=== PATIENT | female | born 1970 | race Caucasian/White ===

== ENCOUNTER → 2023-02-16 | Outpatient (CLI) | payer OTHER ==
[2023-02-16 16:11] LABS: Basophils # (A) 0.05 X 10*3/uL (0.00-0.10); Basophils % (A) 0.5 %; Eosinophils # (A) 0.34 X 10*3/uL (0.04-0.35); Eosinophils % (A) 3.3 %; HCT 40.9 % (37.2-46.3); HGB 12.8 g/dL (12.0-15.0); Immature Grans, Automated 0.3 %; Lymphocytes # (A) 2.82 X 10*3/uL (0.90-5.00); Lymphocytes % (A) 27.5 %; MCH 29.3 pg (27.0-32.0); MCHC 31.3 g/dL (32.0-37.0); MCV 93.6 fL (80.0-97.0); Mean Platelet Volume 11.9 fL (9.5-12.2); Monocytes # (A) 0.75 X 10*3/uL (0.20-1.00); Monocytes % (A) 7.3 %; NRBC Per 100 WBC 0 /100 WBCS (0.0-0.0); Neutrophils # (A) 6.27 X 10*3/uL (1.80-7.70); Neutrophils % (A) 61.1 %; Platelet Count 314 X 10*3/uL (140-440); RBC 4.37 X 10*6/uL (4.10-5.20); RDW 13.4 % (11.5-14.5); WBC 10.26 X 10*3/uL (4.50-10.00)
[2023-02-16 16:19] LABS: African American GFR (CKD) 123.2 (60.0-200.0); Anion Gap 8.8 mmol/L (10.00-18.00); BUN/Creat Ratio 30.67 Ratio (12.00-20.00); Blood Urea Nitrogen 18.4 mg/dL (9.0-27.0); Calcium 9.3 mg/dL (8.7-10.3); Carbon Dioxide 24.2 mmol/L (20.0-27.5); Non-African American GFR(CKD) 106.3 (60.0-200.0); Potassium 4.8 mmol/L (3.5-5.5)
== END | disposition home or self-care (01) ==
LOC: LABPAT 08:47
PROVIDERS: ATTEND Obstetrics & Gynecology
DX: Z01.812 Encounter for preprocedural laboratory examination (principal)
CPT/HCPCS: 80048; 85025; 93005

== ENCOUNTER 2023-02-23 05:35 | Day surgery (SDC) | payer OTHER ==
[2023-02-18 13:37] VITALS: BMI 35.2
[2023-02-23] MEDS ORDERED: DEXAMETHASONE SOD PHOSPHATE 4 MG/ML 1 ML VIAL IV ONE (05:53)
[2023-02-23] MEDS ORDERED: fentaNYL (PF) 50 MCG/ML 2 ML AMP IV PRN (05:53)
[2023-02-23] MEDS ORDERED: ONDANSETRON 4 MG/2 ML VIAL IVP ONE (05:53)
[2023-02-23] MEDS ORDERED: LIDOCAINE 1% (10MG/ML) FOR IV START INTRADERMA PRN (05:53)
[2023-02-23] MEDS: LACTATED RINGERS 1,000 ML IV SCH ×3 (06:32→17:43)
[2023-02-23 06:52] LABS: Glucose,Whole Blood 116 mg/dL (70-110)
[2023-02-23] MEDS ORDERED: SCOPOLAMINE 1 MG/72 HR PATCH TRANSDERM ONE (07:00)
--- NOTE | 2023-02-23 07:09 | P.HPOB ---
History of Present Illness H&P Date: 02/23/23 Chief Complaint: endometriosis 52 year old for TLH BSO using da nikolai and diagnostic cystoscopy. Review of Systems All systems: negative Constitutional: Denies chills, Denies fever Eyes: denies blurred vision, denies pain Ears, nose, mouth and throat: Denies headache, Denies sore throat Cardiovascular: Denies chest pain, Denies shortness of breath Respiratory: Denies cough Gastrointestinal: Denies abdominal pain, Denies diarrhea, Denies nausea, Denies vomiting Genitourinary: Denies dysuria, Denies hematuria Musculoskeletal: Denies myalgias Integumentary: Denies pruritus, Denies rash Neurological: Denies numbness, Denies weakness Psychiatric: Denies anxiety, Denies depression Endocrine: Denies fatigue, Denies weight change Past Medical History Past Medical History: Diabetes Mellitus Additional Past Medical History / Comment(s): Seasonal allergies, pre- diabetic History of Any Multi-Drug Resistant Organisms: None Reported Past Surgical History: Section Additional Past Surgical History / Comment(s): heel spurs Past Anesthesia/Blood Transfusion Reactions: No Reported Reaction Smoking Status: Never smoker - Past Family History Mother Family Medical History: Deep Vein Thrombosis (DVT) Medications and Allergies Home Medications Medication Instructions Recorded Confirmed Type Ascorbic Acid [Vitamin C] 500 mg PO DAILY 02/18/23 02/18/23 History Cholecalciferol [Vitamin D3 (10 10 mcg PO DAILY 02/18/23 02/18/23 History Mcg = 400 Iu)] Levocetirizine Dihydrochloride 5 mg PO HS 02/18/23 02/23/23 History [Xyzal] Multivitamins, Thera [Multivitamin 1 tab PO DAILY 02/18/23 02/18/23 History (formulary)] [place]-3/Dha/Epa/Fish Oil [Fish Oil 1 each PO DAILY 02/18/23 02/18/23 History 500 mg Softgel] Pseudoephedrine HCl [Sudafed] 120 mg PO HS 02/18/23 02/23/23 History Acetaminophen Tab [Tylenol Tab] 500 mg PO BID PRN 02/23/23 02/23/23 History Allergies Allergy/AdvReac Type Severity Reaction Status Date / Time aspirin [From Percodan] Allergy Rash/Hives Verified 02/23/23 06:36 codeine Allergy Rash/Hives Verified 02/23/23 06:36 oxycodone [From Percodan] Allergy Rash/Hives Verified 02/23/23 06:36 Sulfa (Sulfonamide Allergy Rash/Hives Verified 02/23/23 06:36 Antibiotics) sulfamethoxazole Allergy Rash/Hives Verified 02/23/23 06:36 [From Bactrim] trimethoprim [From Bactrim] Allergy Rash/Hives Verified 02/23/23 06:36 Exam Osteopathic Statement: *. No significant issues noted on an osteopathic structural exam other than those noted in the History and Physical/Consult. Vital Signs Temp Pulse Resp BP Pulse Ox 02/23/23 06:29 97.6 F 92 16 140/79 84 L Intake and Output 02/22/23 02/23/23 02/23/23 22:59 06:59 14:59 Other: Weight 91.63 kg HEArt: RRR Lungs:CTAB Abdomen: soft, nontender Extremeties: neg kassandra's Results Abnormal Lab Results - Last 24 Hours (Table) 02/23/23 Range/Units 06:50 POC Glucose (mg/dL) 116 H (70-110) mg/dL Assessment and Plan (1) Endometriosis Current Visit: Yes Status: Acute Code(s): N80.9 - ENDOMETRIOSIS, UNSPECIFIED SNOMED Code(s): 598785911 Plan: 1. [facility] BSO using da nikolai and diagnostic cystoscopy
[2023-02-23] MEDS ORDERED: MIDAZOLAM 2 MG/2 ML VIAL IVP ONE (07:25)
[2023-02-23] MEDS ORDERED: LIDOCAINE 2% INJ 20 MG/ML (2 ML VIAL) ONE (07:34)
[2023-02-23] MEDS ORDERED: KETOROLAC 15 MG/ML 1 ML VIAL ONE (07:34)
[2023-02-23] MEDS ORDERED: GLYCOPYRROLATE 0.2 MG/ML 2 ML VIAL ONE (07:34)
[2023-02-23] MEDS ORDERED: PROPOFOL 10 MG/ML 20 ML VIAL IV ONE (07:34)
[2023-02-23] MEDS ORDERED: SUCCINYLCHOLINE CHLORIDE 200 MG/10 ML VIAL IV ONE (07:34)
[2023-02-23] MEDS ORDERED: fentaNYL (PF) 50 MCG/ML 2 ML AMP ONE (07:34)
[2023-02-23] MEDS ORDERED: ROCURONIUM 10 MG/ML (5 ML VIAL) IV ONE (07:34)
[2023-02-23] MEDS ORDERED: NEOSTIGMINE 1 MG/ML 10 ML VIAL ONE (07:34)
[2023-02-23] MEDS ORDERED: BUPIVACAINE (PF) 0.25% 30 ML VIAL SQ ONE (08:04)
[2023-02-23] MEDS ORDERED: diphenhydrAMINE 50 MG/ML 1 ML VIAL IVP PRN ×2 (09:16)
[2023-02-23] MEDS ORDERED: HYDROmorphone 2 MG TAB PO PRN (09:16)
[2023-02-23] MEDS ORDERED: diphenhydrAMINE 25 MG CAP PO PRN (09:16)
[2023-02-23] MEDS ORDERED: NALOXONE 0.4 MG/ML 1 ML VIAL IV PRN (09:16)
[2023-02-23] MEDS ORDERED: METOCLOPRAMIDE 5 MG/ML 2 ML VIAL IVP PRN (09:16)
[2023-02-23] MEDS ORDERED: SIMETHICONE 80 MG CHEWABLE PO PRN (09:16)
[2023-02-23] MEDS ORDERED: ONDANSETRON 4 MG/2 ML VIAL IVP PRN (09:16)
[2023-02-23] MEDS ORDERED: ZOLPIDEM 5 MG TAB PO PRN (09:16)
[2023-02-23] MEDS ORDERED: diphenhydrAMINE 50 MG CAP PO PRN (09:16)
--- NOTE | 2023-02-23 09:20 | P.OP ---
Date of Procedure: 02/23/23 Preoperative Diagnosis: 1. endometriosis 2. fibroid uterus Postoperative Diagnosis: same Procedure(s) Performed: Laparoscopic hysterectomy bilateral salpingo-oophorectomy using da Scar and diagnostic cystoscopy Anesthesia: MIROSLAVA Surgeon: Megan Tovar Hairspring I Inspector #1: Daisy Momin Estimated Blood Loss (ml): 100 IV fluids (ml): 600 Urine output (ml): 150 Pathology: other (Uterus, cervix, bilateral fallopian tubes and ovaries) Condition: stable Disposition: PACU Description of Procedure: Patient taken the operating room where general anesthesia was obtained without difficulty. She is prepped and draped in normal sterile fashion dorsal lithotomy position, legs placed in the Kojo stirrups. Weighted speculum placed in the vagina and the anterior lip the cervix was grasped with single-tooth tenaculum. The uterus sounded to 9 cm and the cervix diameter was 3.5 cm. The appropriate manipulator tip and ring were placed on the Enedelia manipulator. The Enedelia manipulator was then placed in the uterus. Posey catheter was also placed. Attention was then turned to the abdomen and gloves were changed. A 5 mm supraumbilical incision was made the scalpel and a 5 mm optical trocar was placed under direct visualization. 10 cm to the right of this and 2 cm down a 5 mm incision was made and 8 mm da Scar port was placed under direct visualization. Same measurements on the opposite side of the patient's abdomen, the 5 mm incision was made and 8 mm da Scar port was placed under direct visualization. In the left upper quadrant a 10 mm incision was made and a 10 mm optical trocar was placed under direct visualization. The 5 mm optical trocar was then replaced with the 8 mm da Scar camera port. The robot was docked on patient's right side. The camera was introduced and then the monopolar curved scissor and [place] bipolar placed under direct visualization. I broke scrub and went to the physician console. The left infundibulopelvic ligament was cauterized with the [place] bipolar and cut with monopolar curved scissors. The left round ligament was cauterized with the [place] bipolar and cut with monopolar curved scissors. The posterior leaf of the broad ligament was taken down using the monopolar curved scissors. Anterior leaf of the broad ligament was then taken down using the monopolar curved scissors. The uterine artery was cauterized with the [place] bipolar and cut with monopolar curved scissors. The bladder flap was then started using the monopolar curved scissors. Attention was then turned to the right side of the patient's anatomy and the right infundibular pelvic ligament was cauterized with the [place] bipolar and cut with monopolar curved scissors. The right round ligament was cauterized with the [place] bipolar and cut with monopolar curved scissors. Posterior leaf of the broad ligament was taken down using the monopolar curved scissors and the anterior leaf was taken down using the monopolar curved scissors. The uterine artery was cauterized the [place] bipolar cut with monopolar curved scissors. The bladder flap was then finished on this side. Anterior colpotomy was made using the monopolar curved scissors. The rest of the uterus was from the vaginal cuff by following the ring around with the monopolar curved scissors through the uterosacral ligaments back to the anterior portion. Once the uterus and cervix were amputated they were pulled through the vaginal cuff. Hemostasis was assured. The instruments were changed for the Cardier forcep and the darcy suture cut. The vaginal cuff was then closed using O str atafix barbed suture in a running fashion. Hemostasis was again assured and the pelvis was irrigated. All instruments were removed from the abdomen and the robot was undocked. I scrubbed back in to perform a cystoscopy. There were jets from both ureteral orifices. The abdominal incisions were closed with 4-0 Vicryl in a subcuticular fashion. Patient tolerated the procedure well, sponge and instrument counts correct 2 and she was taken to recovery room in stable condition condition
[2023-02-23] MEDS ORDERED: HYDROmorphone 0.5 MG/0.5 ML SYRINGE IVP ONE ×3 (09:41→10:17)
[2023-02-23] MEDS ORDERED: ACETAMINOPHEN IV (For NPO) 1,000 MG/100 ML VIAL IVPB ONE (09:46)
[2023-02-23] MEDS ORDERED: LACTATED RINGERS 1,000 ML IV ONE ×2 (10:02)
[2023-02-23] MEDS: ACETAMINOPHEN TAB 500 MG TAB PO SCH ×2 (17:12→22:32)
[2023-02-23] MEDS: KETOROLAC 15 MG/ML 1 ML VIAL IVP SCH (18:32)
[2023-02-23] MEDS: SENNOSIDES-DOCUSATE SODIUM 1 EACH TAB PO SCH (22:33)
[2023-02-23] MEDS: IBUPROFEN 600 MG TAB PO SCH (22:33)
[2023-02-24] MEDS: IBUPROFEN 600 MG TAB PO SCH (01:32)
[2023-02-24] MEDS: ACETAMINOPHEN TAB 500 MG TAB PO SCH (04:35)
[2023-02-24] MEDS: KETOROLAC 15 MG/ML 1 ML VIAL IVP SCH ×2 (04:36→04:37)
[2023-02-24] MEDS: LACTATED RINGERS 1,000 ML IV SCH ×2 (04:37→06:56)
--- NOTE | 2023-02-24 07:55 | P.DS ---
Providers Expected date of discharge: 02/24/23 Attending physician: Megan Tovar Primary care physician: Radah Claros - Discharge Diagnosis(es) (1) Endometriosis Current Visit: Yes Status: Resolved (2) History of robot-assisted laparoscopic hysterectomy Current Visit: Yes Status: Acute Hospital Course: Patient presented for a TLHBSO using da Scar and diagnostic cystoscopy. She underwent this procedure without complication. Her postoperative course was uneventful. She denies nausea, vomiting, chest pain, shortness of breath or calf pain. Patient will be discharged home post operative day #1 in stable condition to follow-up with me in 3 weeks. Plan - Discharge Summary Discharge Rx Participant: Yes New Discharge Prescriptions: New HYDROmorphone [Dilaudid] 4 mg PO Q4HR PRN #12 tab PRN Reason: Pain Scale 7 - 10 Ibuprofen [Motrin] 600 mg PO Q6H #30 tab No Action Levocetirizine Dihydrochloride [Xyzal] 5 mg PO HS Acetaminophen Tab [Tylenol Tab] 500 mg PO BID PRN PRN Reason: Pain Ascorbic Acid [Vitamin C] 500 mg PO DAILY Cholecalciferol [Vitamin D3 (10 Mcg = 400 Iu)] 10 mcg PO DAILY Pseudoephedrine HCl [Sudafed] 120 mg PO HS Multivitamins, Thera [Multivitamin (formulary)] 1 tab PO DAILY [place]-3/Dha/Epa/Fish Oil [Fish Oil 500 mg Softgel] 1 each PO DAILY Discharge Medication List Ascorbic Acid [Vitamin C] 500 mg PO DAILY 02/18/23 [History] Cholecalciferol [Vitamin D3 (10 Mcg = 400 Iu)] 10 mcg PO DAILY 02/18/23 [History] Levocetirizine Dihydrochloride [Xyzal] 5 mg PO HS 02/18/23 [History] Multivitamins, Thera [Multivitamin (formulary)] 1 tab PO DAILY 02/18/23 [History] [place]-3/Dha/Epa/Fish Oil [Fish Oil 500 mg Softgel] 1 each PO DAILY 02/18/23 [History] Pseudoephedrine HCl [Sudafed] 120 mg PO HS 02/18/23 [History] Acetaminophen Tab [Tylenol Tab] 500 mg PO BID PRN 02/23/23 [History] HYDROmorphone [Dilaudid] 4 mg PO Q4HR PRN #12 tab 04/11/23 [Rx] Ibuprofen [Motrin] 600 mg PO Q6H #30 tab 02/24/23 [Rx] Follow up Appointment(s)/Referral(s): Megan Tovar DO [Doctor of Osteopathic Medicine] - 3 Weeks Patient Instructions/Handouts: *Surgery [facility] - Scopalamine Patch Instructions Discharge Disposition: HOME SELF-CARE
[2023-02-24 08:06] LABS: Basophils % (A) 0 %; Eosinophils # (A) 0.1 k/uL (0-0.7); Eosinophils % (A) 1 %; HCT 36.2 % (34.0-46.0); HGB 11.8 gm/dL (11.4-16.0); Lymphocytes % (A) 30 %; MCH 30.1 pg (25.0-35.0); MCHC 32.7 g/dL (31.0-37.0); Mean Platelet Volume 9.1; Monocytes # (A) 0.4 k/uL (0-1.0); Monocytes % (A) 4 %; Neutrophils # (A) 6.2 k/uL (1.3-7.7); Neutrophils % (A) 62 %; Platelet Count 257 k/uL (150-450); RBC 3.94 m/uL (3.80-5.40); RDW 13.4 % (11.5-15.5)
[2023-02-24 08:09] VITALS: BP 125/69; PULSE 69; RESP 18; TEMP 98.4
[2023-02-24] MEDS: SENNOSIDES-DOCUSATE SODIUM 1 EACH TAB PO SCH (08:10)
== END 2023-02-24 09:45 | disposition home or self-care (01) ==
LOC: OR 05:35 → 4FBP 09:35 → OR 02-24 09:45
PROVIDERS: ATTEND Obstetrics & Gynecology
DX: D25.1 Intramural leiomyoma of uterus (principal); N84.1 Polyp of cervix uteri; N83.11 Corpus luteum cyst of right ovary; N83.202 Unspecified ovarian cyst, left side; N80.9 Endometriosis, unspecified; Z87.39 Personal history of other diseases of the musculoskeletal system and connective tissue; Z83.2 Family history of diseases of the blood and blood-forming organs and certain disorders involving the immune mechanism; Z79.899 Other long term (current) drug therapy; Z88.6 Allergy status to analgesic agent; Z88.5 Allergy status to narcotic agent; Z88.2 Allergy status to sulfonamides; Z88.1 Allergy status to other antibiotic agents
CPT/HCPCS: 58554; S2900; 81025; 85025; 86850; 86900; 86901; 88307

== ENCOUNTER 2024-08-12 16:51 | Emergency (ER) | payer OTHER ==
[2024-08-12 17:05] VITALS: TEMP 98
--- NOTE | 2024-08-12 17:41 | ED ---
Back Pain HPI - General Chief Complaint: Back Pain/Injury Stated Complaint: Right flank and back pain, vomiting Time Seen by Provider: 08/12/24 17:11 Source: patient, RN notes reviewed Limitations: no limitations - History of Present Illness Initial Comments: 53-year-old female presenting to the ER with chief complaint of right flank pain x 1 day. Patient states she has been having intermittent, mild right flank pain over the past 2 weeks. This morning, patient states right flank pain began to worsen and describes it as a throbbing pain with intermittent sharp pains locat ed in the right flank radiating to the back and into the front of the abdomen. She also reports an episode of vomiting this morning. States the pain is constant and she cannot find a comfortable position. Denies urinary symptoms, fever, chills, chest pain, shortness of breath. She does have a history of hysterectomy and , denies other abdominal surgeries. She states her PCP believes her pain is stress-induced as she has been under a lot of stress lately. - Related Data Home Medications Medication Instructions Recorded Confirmed Ascorbic Acid [Vitamin C] 500 mg PO DAILY 02/18/23 02/18/23 Cholecalciferol [Vitamin D3 (10 10 mcg PO DAILY 02/18/23 02/18/23 Mcg = 400 Iu)] Levocetirizine Dihydrochloride 5 mg PO HS 02/18/23 02/23/23 [Xyzal] Multivitamins, Thera [Multivitamin 1 tab PO DAILY 02/18/23 02/18/23 (formulary)] [place]-3/Dha/Epa/Fish Oil [Fish Oil 1 each PO DAILY 02/18/23 02/18/23 500 mg Softgel] Pseudoephedrine HCl [Sudafed] 120 mg PO HS 02/18/23 02/23/23 Acetaminophen Tab [Tylenol Tab] 500 mg PO BID PRN 02/23/23 02/23/23 Previous Rx's Medication Instructions Recorded HYDROmorphone [Dilaudid] 4 mg PO Q4HR PRN #12 tab 02/24/23 Ibuprofen [Motrin] 600 mg PO Q6H #30 tab 02/24/23 Ketorolac [Toradol] 10 mg PO Q8HR #15 tab 08/12/24 Allergies Allergy/AdvReac Type Severity Reaction Status Date / Time aspirin [From Percodan] Allergy Rash/Hives Verified 02/23/23 06:36 codeine Allergy Rash/Hives Verified 02/23/23 06:36 oxycodone [From Percodan] Allergy Rash/Hives Verified 02/23/23 06:36 Sulfa (Sulfonamide Allergy Rash/Hives Verified 02/23/23 06:36 Antibiotics) sulfamethoxazole Allergy Rash/Hives Verified 02/23/23 06:36 [From Bactrim] trimethoprim [From Bactrim] Allergy Rash/Hives Verified 02/23/23 06:36 Review of Systems ROS Statement: Those systems with pertinent positive or pertinent negative responses have been documented in the HPI. ROS Other: All systems not noted in ROS Statement are negative. Past Medical History Past Medical History: Diabetes Mellitus, Skin Disorder Additional Past Medical History / Comment(s): Seasonal allergies, pre- diabetic History of Any Multi-Drug Resistant Organisms: None Reported Past Surgical History: Section, Hysterectomy Additional Past Surgical History / Comment(s): heel spurs Past Anesthesia/Blood Transfusion Reactions: No Reported Reaction Past Psychological History: Anxiety Smoking Status: Never smoker - Past Family History Mother Family Medical History: Deep Vein Thrombosis (DVT) General Exam Limitations: no limitations General appearance: alert, in no apparent distress Head exam: Present: atraumatic, normocephalic, normal inspection Eye exam: Present: normal appearance, PERRL, EOMI. Absent: scleral icterus, conjunctival injection, periorbital swelling ENT exam: Present: normal exam, mucous membranes moist Respiratory exam: Present: normal lung sounds bilaterally. Absent: respiratory distress, wheezes, rales, rhonchi, stridor Cardiovascular Exam: Present: regular rate, normal rhythm, normal heart sounds. Absent: systolic murmur, diastolic murmur, rubs, gallop, clicks GI/Abdominal exam: Present: soft, normal bowel sounds. Absent: distended, tenderness, guarding, rebound, rigid Back exam: Absent: CVA tenderness (R), CVA tenderness (L) Neurological exam: Present: alert, oriented X3 Psychiatric exam: Present: normal affect, normal mood Skin exam: Present: warm, dry, intact, normal color. Absent: rash Course Vital Signs 08/12/24 08/12/24 17:02 20:33 Temperature 98 F Pulse Rate 76 81 Respiratory 16 18 Rate Blood Pressure 144/104 117/75 O2 Sat by Pulse 99 100 Oximetry Medical Decision Making - Medical Decision Making Was pt. sent in by a medical professional or institution (CLARISSA Deshpande, AIRCRAFT DESIGN ENGINEER, urgent care, hospital, or halfway...) When possible be specific @ -No Did you speak to anyone other than the patient for history (EMS, parent, family, police, friend...)? What history was obtained from this source @ -No Did you review nursing and triage notes (agree or disagree)? Why? @ -I reviewed and agree with nursing and triage notes Were old charts reviewed (outside hosp., previous admission, EMS record, old EKG, old radiological studies, urgent care reports/EKG's, halfway records)? Report findings @ -No old charts were reviewed Differential Diagnosis (chest pain, altered mental status, abdominal pain women, abdominal pain men, vaginal bleeding, weakness, fever, dyspnea, syncope, headache, dizziness, GI bleed, back pain, seizure, CVA, palpatations, mental health, musculoskeletal)? @ -Differential Abdominal Pain Women: Appendicitis, Cholecystitis, diverticulosis, ischemic bowel, pancreatitis, hepatitis, UTI, gastroenteritis, AAA, incarcerated hernia, bowel obstruction, constipation, inflammatory bowel, hepatitis, peptic ulcer disease, splenic infarction, perforated viscus, vulvitis, ovarian torsion, PID, kidney stone, placenta abruption, this is not meant to be an all-inclusive list EKG interpreted by me (3pts min.). @ -None X-rays interpreted by me (1pt min.). @ -None done CT interpreted by me (1pt min.). @ -None done U/S interpreted by me (1pt. min.). @ -Send gallbladder revealed hepatic steatosis and cholelithiasis, no acute process What testing was considered but not performed or refused? (CT, X-rays, U/S, labs)? Why? @ -CT considered however deferred due to pain improved upon reevaluation, no blood/bacteria in urine or hydronephrosis to indicate kidney stone or pyelonephrosis What meds were considered but not given or refused? Why? @ -None Did you discuss the management of the patient with other professionals (professionals i.e. CLARISSA Deshpande, AIRCRAFT DESIGN ENGINEER, lab, RT, psych nurse, social worker aide, senior mortgage loan processor, teacher, personnel officer, wrapper caser)? Give summary @ -No Was smoking cessation discussed for >3mins.? @ -No Was critical care preformed (if so, how long)? @ -No Were there social determinants of health that impacted care today? How? (Homelessness, low income, unemployed, alcoholism, drug addiction, transp ortation, low edu. Level, literacy, decrease access to med. care, detention, rehab)? @ -No Was there de-escalation of care discussed even if they declined (Discuss DNR or withdrawal of care, Hospice)? DNR status @ -No What co-morbidities impacted this encounter? (DM, HTN, Smoking, COPD, CAD, Cancer, CVA, ARF, Chemo, Hep., AIDS, mental health diagnosis, sleep apnea, morbid obesity)? @ -None Was patient admitted / discharged? Hospital course, mention meds given and route, prescriptions, significant lab abnormalities, going to OR and other pertinent info. @ -Discharge. This is a 53-year-old female presenting to the ER with chief complaint of right flank pain x 1 day. No red flag symptoms. Vital signs within acceptable limits. Abdomen is soft and nontender. Patient is provided with IV fluids, analgesics, and antiemetics. Lab work including CBC, CMP, lactic acid, lipase remarkable for white blood cell count of 12.5, otherwise unremarkable. Urinalysis largely unremarkable for significant amount of blood or bacteria. Ultrasound gallbladder reveals cholelithiasis and hepatic steatosis. Upon reevaluation, patient states symptoms improved. Due to no abdominal tenderness, no hydronephrosis or blood in urine, kidney stone unlikely. Discussed with patient I do not suspect emergent etiology causing symptoms at this time. Strict return precautions discussed and patient is agreeable to plan. Patient discharged with analgesics. Case was discussed with my ED attending Dr. Avila. Undiagnosed new problem with uncertain prognosis? @ -No Drug Therapy requiring intensive monitoring for toxicity (Heparin, Nitro, Insulin, Cardizem)? @ -No Were any procedures done? @ -No Diagnosis/symptom? @ -Right flank pain Acute, or Chronic, or Acute on Chronic? @ -Acute Uncomplicated (without systemic symptoms) or Complicated (systemic symptoms)? @ -Uncomplicated Side effects of treatment? @ -No Exacerbation, Progression, or Severe Exacerbation? @ -No Poses a threat to life or bodily function? How? (Chest pain, [place], CA, pneumonia, PE, COPD, DKA, ARF, appy, cholecystitis, CVA, Diverticulitis, Homicidal, Suicidal, threat to staff... and all critical care pts) @ -Not at this time - Lab Data Result diagrams: 08/12/24 18:16 08/12/24 18:16 Lab Results 08/12/24 08/12/24 08/12/24 Range/Units 18:16 18:16 18:16 WBC 12.5 H (3.8-10.6) k/uL RBC 4.97 (3.80-5.40) m/uL Hgb 15.6 (11.4-16.0) gm/dL Hct 47.4 H (34.0-46.0) % MCV 95.5 (80.0-100.0) fL MCH 31.5 (25.0-35.0) pg MCHC 32.9 (31.0-37.0) g/dL RDW 13.0 (11.5-15.5) % Plt Count 276 (150-450) k/uL MPV 9.3 Neutrophils % 84 % Lymphocytes % 11 % Monocytes % 3 % Eosinophils % 1 % Basophils % 0 % Neutrophils # 10.5 H (1.3-7.7) k/uL Lymphocytes # 1.4 (1.0-4.8) k/uL Monocytes # 0.3 (0-1.0) k/uL Eosinophils # 0.1 (0-0.7) k/uL Basophils # 0.0 (0-0.2) k/uL Sodium 140 (137-145) mmol/L Potassium 4.7 (3.5-5.1) mmol/L Chloride 105 (98-107) mmol/L Carbon Dioxide 27 (22-30) mmol/L Anion Gap 8 mmol/L BUN 19 H (7-17) mg/dL Creatinine 0.57 (0.52-1.04) mg/dL Est GFR (CKD-EPI)AfAm >90 (>60 ml/min/1.73 sqM) Est GFR (CKD-EPI)NonAf >90 (>60 ml/min/1.73 sqM) Glucose 129 H (74-99) mg/dL Plasma Lactic Acid Richard 1.0 (0.7-2.0) mmol/L Calcium 9.7 (8.4-10.2) mg/dL Total Bilirubin 0.6 (0.2-1.3) mg/dL AST 26 (14-36) U/L ALT 36 H (4-34) U/L Alkaline Phosphatase 98 (38-126) U/L Total Protein 8.2 (6.3-8.2) g/dL Albumin 4.9 (3.5-5.0) g/dL Lipase 75 (23-300) U/L Urine Color Urine Appearance (Clear) Urine pH (5.0-8.0) Ur Specific [place] (1.001-1.035) Urine Protein (Negative) Urine Glucose (UA) (Negative) Urine Ketones (Negative) Urine Blood (Negative) Urine Nitrite (Negative) Urine Bilirubin (Negative) Urine Urobilinogen (<2.0) mg/dL Ur Leukocyte Esterase (Negative) Urine RBC (0-5) /hpf Urine WBC (0-5) /hpf Ur Squamous Epith Cells (0-4) /hpf Urine Mucus (None) /hpf 08/12/24 Range/Units 19:32 WBC (3.8-10.6) k/uL RBC (3.80-5.40) m/uL Hgb (11.4-16.0) gm/dL Hct (34.0-46.0) % MCV (80.0-100.0) fL MCH (25.0-35.0) pg MCHC (31.0-37.0) g/dL RDW (11.5-15.5) % Plt Count (150-450) k/uL MPV Neutrophils % % Lymphocytes % % Monocytes % % Eosinophils % % Basophils % % Neutrophils # (1.3-7.7) k/uL Lymphocytes # (1.0-4.8) k/uL Monocytes # (0-1.0) k/uL Eosinophils # (0-0.7) k/uL Basophils # (0-0.2) k/uL Sodium (137-145) mmol/L Potassium (3.5-5.1) mmol/L Chloride (98-107) mmol/L Carbon Dioxide (22-30) mmol/L Anion Gap mmol/L BUN (7-17) mg/dL Creatinine (0.52-1.04) mg/dL Est GFR (CKD-EPI)AfAm (>60 ml/min/1.73 sqM) Est GFR (CKD-EPI)NonAf (>60 ml/min/1.73 sqM) Glucose (74-99) mg/dL Plasma Lactic Acid Richard (0.7-2.0) mmol/L Calcium (8.4-10.2) mg/dL Total Bilirubin (0.2-1.3) mg/dL AST (14-36) U/L ALT (4-34) U/L Alkaline Phosphatase (38-126) U/L Total Protein (6.3-8.2) g/dL Albumin (3.5-5.0) g/dL Lipase (23-300) U/L Urine Color Colorless Urine Appearance Clear (Clear) Urine pH 7.0 (5.0-8.0) Ur Specific [place] 1.021 (1.001-1.035) Urine Protein Negative (Negative) Urine Glucose (UA) Negative (Negative) Urine Ketones Negative (Negative) Urine Blood Negative (Negative) Urine Nitrite Negative (Negative) Urine Bilirubin Negative (Negative) Urine Urobilinogen <2.0 (<2.0) mg/dL Ur Leukocyte Esterase Moderate H (Negative) Urine RBC 1 (0-5) /hpf Urine WBC 8 H (0-5) /hpf Ur Squamous Epith Cells 5 H (0-4) /hpf Urine Mucus Rare H (None) /hpf Disposition Clinical Impression: Right flank pain Disposition: HOME SELF-CARE Condition: Stable Instructions (If sedation given, give patient instructions): Flank Pain (ED) Additional Instructions: Please return to the Emergency Department if symptoms worsen or any other concerns. Prescriptions: Ketorolac [Toradol] 10 mg PO Q8HR #15 tab Is patient prescribed a controlled substance at d/c from ED?: No Referrals: Radha Claros MD [Primary Care Provider] - 1-2 days Time of Disposition: 20:26
[2024-08-12] MEDS: SODIUM CHLORIDE 0.9% 1,000 ML IV STA (18:21)
[2024-08-12] MEDS: KETOROLAC 15 MG/ML 1 ML VIAL IVP STA ×2 (18:22→20:37)
[2024-08-12 18:24] LABS: Basophils % (A) 0 %; Eosinophils # (A) 0.1 k/uL (0-0.7); Eosinophils % (A) 1 %; HCT 47.4 % (34.0-46.0); HGB 15.6 gm/dL (11.4-16.0); Lymphocytes # (A) 1.4 k/uL (1.0-4.8); Lymphocytes % (A) 11 %; MCH 31.5 pg (25.0-35.0); MCHC 32.9 g/dL (31.0-37.0); MCV 95.5 fL (80.0-100.0); Mean Platelet Volume 9.3; Monocytes # (A) 0.3 k/uL (0-1.0); Monocytes % (A) 3 %; Neutrophils # (A) 10.5 k/uL (1.3-7.7); Neutrophils % (A) 84 %; Platelet Count 276 k/uL (150-450); RBC 4.97 m/uL (3.80-5.40); WBC 12.5 k/uL (3.8-10.6)
[2024-08-12] MEDS: ONDANSETRON 4 MG/2 ML VIAL IVP STA (18:24)
[2024-08-12 18:35] LABS: ALT 36 U/L (4-34); AST 26 U/L (14-36); African American GFR (CKD) >90 (>60 ml/min/1.73 sqM); Albumin 4.9 g/dL (3.5-5.0); Alkaline Phosphatase 98 U/L (38-126); Anion Gap 8 mmol/L; Blood Urea Nitrogen 19 mg/dL (7-17); Calcium 9.7 mg/dL (8.4-10.2); Carbon Dioxide 27 mmol/L (22-30); Chloride 105 mmol/L (98-107); Glucose 129 mg/dL (74-99); Lipase 75 U/L (23-300); Non-African American GFR(CKD) >90 (>60 ml/min/1.73 sqM); Potassium 4.7 mmol/L (3.5-5.1); Sodium 140 mmol/L (137-145); Total Bilirubin 0.6 mg/dL (0.2-1.3); Total Protein 8.2 g/dL (6.3-8.2)
--- NOTE | 2024-08-12 19:24 | US ---
EXAMINATION TYPE: US gallbladder DATE OF EXAM: 08/12/2024 COMPARISON: NONE CLINICAL INDICATION: Female, 53 years old with history of RUQ abdominal pain; Right side ABD pain TECHNIQUE: Multiple sonographic images of the right upper quadrant are obtained. FINDINGS: EXAM MEASUREMENTS: Liver Length: 17.9 cm Gallbladder Wall: 0.3 cm CBD: 0.5 cm Right Kidney: 10.2 x 4.4 x 4.9 cm PRISON KEEPER NOTES: Pancreas: wnl, tail obscured by overlying bowel gas Liver: Enlarged, difficult to penetrate, heterogeneous Gallbladder: Multiple gallstones near neck Evidence for sonographic Warner's sign: No CBD: wnl Right Kidney: No evidence of hydro IMPRESSION: 1. Hepatic steatosis. 2. Cholelithiasis. [facility], , 08/12/2024 7:22 PM
[2024-08-12 20:06] LABS: Appearance,Urine Clear (Clear); Bilirubin,Urine Negative (Negative); Blood,Urine Negative (Negative); Color,Urine Colorless; Glucose,Urine (UA) Negative (Negative); Ketones,Urine Negative (Negative); Leukocyte Esterase,Urine Moderate (Negative); Mucus,Urine Rare /hpf; Nitrite,Urine Negative (Negative); Protein,Urine Negative (Negative); RBC,Urine 1 /hpf (0-5); Specific Gravity,Urine 1.021 (1.001-1.035); Squamous Epithelial Cell,Urine 5 /hpf (0-4); Urobilinogen,Urine <2.0 mg/dL (<2.0); WBC,Urine 8 /hpf (0-5)
[2024-08-12 20:37] VITALS: BP 117/75; PULSE 81; RESP 18
== END 2024-08-12 20:41 | disposition home or self-care (01) ==
LOC: EC 16:51
DX: K80.20 Calculus of gallbladder without cholecystitis without obstruction (principal); K76.0 Fatty (change of) liver, not elsewhere classified; Z88.2 Allergy status to sulfonamides; Z88.1 Allergy status to other antibiotic agents; Z88.5 Allergy status to narcotic agent; Z88.6 Allergy status to analgesic agent; Z90.710 Acquired absence of both cervix and uterus
CPT/HCPCS: 36415; 76705; 80053; 81001; 83605; 83690; 85025; 96361; 96374; 96375; 96376; 99284

== ENCOUNTER 2024-08-14 20:57 | Emergency (ER) | payer OTHER ==
[2024-08-14 21:00] VITALS: RESP 16
--- NOTE | 2024-08-14 21:38 | ED ---
Abdominal Pain HPI - General Chief Complaint: Abdominal Pain Stated Complaint: Back Pain Source: patient Mode of arrival: ambulatory Limitations: no limitations - History of Present Illness Initial Comments: Patient is a 53-year-old woman Who presents to have evaluation of right flank/abdomen pain. Patient states pain started 3 to 4 days ago and has been constant since that time. It was a little worse tonight before she had eaten dinner. She was seen here 2 days ago, had lab studies and an ultrasound of the right upper quadrant that did not reveal exact etiology. The patient states that she has been taking ketorolac which does not really do much for the symp toms. The patient has not had associated symptoms, no fever or chills. No change in urination or bowel movements. MD Complaint: flank pain Onset/Timin -: days(s) Location: R flank Radiation: none Migration to: no migration Severity: moderate Quality: aching Consistency: constant Improves With: nothing Worsens With: nothing Associated Symptoms: denies other symptoms - Related Data Home Medications Medication Instructions Recorded Confirmed Cholecalciferol [Vitamin D3 (10 10 mcg PO DAILY 02/18/23 08/17/24 Mcg = 400 Iu)] Levocetirizine Dihydrochloride 5 mg PO HS 02/18/23 08/17/24 [Xyzal] Multivitamins, Thera [Multivitamin 1 tab PO DAILY 02/18/23 08/17/24 (formulary)] Previous Rx's Medication Instructions Recorded Famotidine [Pepcid] 20 mg PO BID #14 tablet 08/15/24 Acetaminophen Tab [Tylenol Tab] 650 mg PO Q4H PRN #30 tablet 08/18/24 Ibuprofen [Motrin] 600 mg PO Q8HR PRN #30 tab 08/18/24 Allergies Allergy/AdvReac Type Severity Reaction Status Date / Time acetaminophen [From [place]] Allergy Rash/Hives Verified 08/16/24 18:20 aspirin [From Percodan] Allergy Rash/Hives Verified 08/17/24 10:30 codeine Allergy Rash/Hives Verified 08/17/24 10:30 hydrocodone [From [place]] Allergy Rash/Hives Verified 08/16/24 18:20 oxycodone [From Percodan] Allergy Rash/Hives Verified 08/17/24 10:30 Sulfa (Sulfonamide Allergy Rash/Hives/ Verified 08/17/24 10:30 Antibiotics) SOB Review of Systems ROS Statement: Those systems with pertinent positive or pertinent negative responses have been documented in the HPI. ROS Other: All systems not noted in ROS Statement are negative. Constitutional: Denies: fever, chills Respiratory: Denies: cough, dyspnea Cardiovascular: Denies: chest pain, palpitations, edema Gastrointestinal: Reports: abdominal pain. Denies: nausea, vomiting, diarrhea, constipation Genitourinary: Denies: dysuria, hematuria Musculoskeletal: Denies: back pain Skin: Denies: rash Neurological: Denies: headache, weakness, numbness Past Medical History Past Medical History: Diabetes Mellitus, Skin Disorder Additional Past Medical History / Comment(s): Seasonal allergies, pre- diabetic History of Any Multi-Drug Resistant Organisms: None Reported Past Surgical History: Section, Hysterectomy Additional Past Surgical History / Comment(s): heel spurs Past Anesthesia/Blood Transfusion Reactions: No Reported Reaction Past Psychological History: Anxiety Smoking Status: Never smoker - Past Family History Mother Family Medical History: Deep Vein Thrombosis (DVT) General Exam Limitations: no limitations General appearance: alert, in no apparent distress Head exam: Present: atraumatic, normocephalic Eye exam: Present: normal appearance. Absent: scleral icterus, conjunctival injection Neck exam: Present: normal inspection Respiratory exam: Present: normal lung sounds bilaterally. Absent: respiratory distress, wheezes, rales, rhonchi, stridor, accessory muscle use Cardiovascular Exam: Present: regular rate, normal rhythm, normal heart sounds. Absent: systolic murmur, diastolic murmur, rubs, gallop GI/Abdominal exam: Present: soft. Absent: distended, tenderness, guarding, rebound, rigid, mass Extremities exam: Present: normal inspection, normal capillary refill. Absent: pedal edema, calf tenderness Back exam: Present: normal inspection. Absent: CVA tenderness (R), CVA tenderness (L) Neurological exam: Present: alert Skin exam: Present: warm, dry, intact, normal color. Absent: rash Course Vital Signs 08/14/24 08/14/24 08/15/24 20:58 22:40 01:00 Temperature 98.8 F 98.1 F Pulse Rate 71 68 86 Respiratory 16 16 16 Rate Blood Pressure 155/85 154/100 127/78 O2 Sat by Pulse 99 95 98 Oximetry Medical Decision Making - Medical Decision Making The patient had CT scan of the abdomen and pelvis that I interpreted as negative for free air, obstruction, or acute surgical condition. Was pt. sent in by a medical professional or institution (CLARISSA Deshpande, SPRAY PAINTING MACHINE OPERATOR, urgent care, hospital, or prison...) When possible be specific @ -[No] Did you speak to anyone other than the patient for history (EMS, parent, family, police, friend...)? What history was obtained from this source @ -[No] Did you review nursing and triage notes (agree or disagree)? Why? @ -[I reviewed and agree with nursing and triage notes] Were old charts reviewed (outside hosp., previous admission, EMS record, old EKG, old radiological studies, urgent care reports/EKG's, prison records)? Report findings @ -[Yes old charts were reviewed] Differential Diagnosis (chest pain, altered mental status, abdominal pain women, abdominal pain men, vaginal bleeding, weakness, fever, dyspnea, syncope, headache, dizziness, GI bleed, back pain, seizure, CVA, palpatations, mental health, musculoskeletal)? @ -[Differential Abdominal Pain Women: Appendicitis, Cholecystitis, diverticulosis, ischemic bowel, pancreatitis, hepatitis, UTI, gastroenteritis, AAA, incarcerated hernia, bowel obstruction, constipation, inflammatory bowel, hepatitis, peptic ulcer disease, splenic infarction, perforated viscus, vulvitis, ovarian torsion, PID, kidney stone, placenta abruption, this is not meant to be an all-inclusive list EKG interpreted by me (3pts min.). @ -[As above] X-rays interpreted by me (1pt min.). @ -[None done] CT interpreted by me (1pt min.). @ -[I interpreted as above U/S interpreted by me (1pt. min.). @ -[None done] What testing was considered but not performed or refused? (CT, X-rays, U/S, labs)? Why? @ -[None] What meds were considered but not given or refused? Why? @ -[None] Did you discuss the management of the patient with other professionals (professionals i.e. CLARISSA Deshpande, SPRAY PAINTING MACHINE OPERATOR, lab, RT, psych nurse, clinical social work aide, air vice marshal, teacher, psychological operations officer, piano case maker)? Give summary @ -[No] Was smoking cessation discussed for >3mins.? @ -[No] Was critical care preformed (if so, how long)? @ -[No] Were there social determinants of health that impacted care today? How? (Homelessness, low income, unemployed, alcoholism, drug addiction, transportation, low edu. Level, literacy, decrease access to med. care, long term, rehab)? @ -[No] Was there de-escalation of care discussed even if they declined (Discuss DNR or withdrawal of care, Hospice)? DNR status @ -[No] What co-morbidities impacted this encounter? (DM, HTN, Smoking, COPD, CAD, Cancer, CVA, ARF, Chemo, Hep., AIDS, mental health diagnosis, sleep apnea, morbid obesity)? @ -[None] Was patient admitted / discharged? Hospital course, mention meds given and route, prescriptions, significant lab abnormalities, going to OR and other pertinent info. @ -[Patient is 53-year-old woman here with right abdominal pain, suspected of biliary origin. The patient did have improvement in her symptoms with medication. The CT scan does not reveal exact etiology of the pain. At this point the patient feeling well and would like to have outpatient course. We discussed following up to have HIDA scan. Discussed return parameters should symptoms recur. Undiagnosed new problem with uncertain prognosis? @ -[No] Drug Therapy requiring intensive monitoring for toxicity (Heparin, Nitro, Insulin, Cardizem)? @ -[No] Were any procedures done? @ -[No] Diagnosis/symptom? @ -[Acute abdominal pain, suspected due to biliary colic Acute, or Chronic, or Acute on Chronic? @ -[Acute Uncomplicated (without systemic symptoms) or Complicated (systemic symptoms)? @ -[Uncomplicated Side effects of treatment? @ -[No] Exacerbation, Progression, or Severe Exacerbation? @ -[No] Poses a threat to life or bodily function? How? (Chest pain, [place], [place], pneumonia, PE, COPD, DKA, ARF, appy, cholecystitis, CVA, Diverticulitis, Homicidal, Suicidal, threat to staff... and all critical care pts) @ -[No] - Lab Data Result diagrams: 08/14/24 21:39 08/14/24 21:39 Lab Results 08/14/24 08/14/24 08/14/24 Range/Units 21:39 21:39 22:51 WBC 12.2 H (3.8-10.6) k/uL RBC 4.56 (3.80-5.40) m/uL Hgb 14.3 (11.4-16.0) gm/dL Hct 42.7 (34.0-46.0) % MCV 93.6 (80.0-100.0) fL MCH 31.4 (25.0-35.0) pg MCHC 33.5 (31.0-37.0) g/dL RDW 13.3 (11.5-15.5) % Plt Count 242 (150-450) k/uL MPV 9.8 Neutrophils % 75 % Lymphocytes % 16 % Monocytes % 5 % Eosinophils % 2 % Basophils % 0 % Neutrophils # 9.2 H (1.3-7.7) k/uL Lymphocytes # 2.0 (1.0-4.8) k/uL Monocytes # 0.6 (0-1.0) k/uL Eosinophils # 0.3 (0-0.7) k/uL Basophils # 0.1 (0-0.2) k/uL Sodium 137 (137-145) mmol/L Potassium 4.4 (3.5-5.1) mmol/L Chloride 108 H (98-107) mmol/L Carbon Dioxide 22 (22-30) mmol/L Anion Gap 7 mmol/L BUN 19 H (7-17) mg/dL Creatinine 0.52 (0.52-1.04) mg/dL Est GFR (CKD-EPI)AfAm >90 (>60 ml/min/1.73 sqM) Est GFR (CKD-EPI)NonAf >90 (>60 ml/min/1.73 sqM) Glucose 140 H (74-99) mg/dL Calcium 9.4 (8.4-10.2) mg/dL Total Bilirubin 0.5 (0.2-1.3) mg/dL AST 26 (14-36) U/L ALT 30 (4-34) U/L Alkaline Phosphatase 82 (38-126) U/L C-Reactive Protein 1.2 H (<1.0) mg/dL Total Protein 7.1 (6.3-8.2) g/dL Albumin 4.4 (3.5-5.0) g/dL Amylase 46 (30-110) U/L Lipase 64 (23-300) U/L Urine Color Colorless Urine Appearance Clear (Clear) Urine pH 6.5 (5.0-8.0) Ur Specific [place] 1.007 (1.001-1.035) Urine Protein Negative (Negative) Urine Glucose (UA) Negative (Negative) Urine Ketones Negative (Negative) Urine Blood Negative (Negative) Urine Nitrite Negative (Negative) Urine Bilirubin Negative (Negative) Urine Urobilinogen <2.0 (<2.0) mg/dL Ur Leukocyte Esterase Small H (Negative) Urine RBC 1 (0-5) /hpf Urine WBC 4 (0-5) /hpf Ur Squamous Epith Cells 1 (0-4) /hpf Urine Mucus Rare H (None) /hpf Disposition Clinical Impression: Abdominal pain Disposition: HOME SELF-CARE Condition: Good Instructions (If sedation given, give patient instructions): Abdominal Pain (ED) Additional Instructions: As we discussed, follow-up with Dr. Ben España to arrange the HIDA scan related to your gallbladder. Prescriptions: Famotidine [Pepcid] 20 mg PO BID #14 tablet Is patient prescribed a controlled substance at d/c from ED?: No Referrals: Radha Claros MD [Primary Care Provider] - 1-2 days Hema Saucedo MD [STAFF PHYSICIAN] - 1-2 days Nisa Burger MD [STAFF PHYSICIAN] - 1-2 days
[2024-08-14] MEDS: MORPHINE SULFATE 4 MG/ML SYRINGE IV STA (21:44)
[2024-08-14 21:51] LABS: Basophils # (A) 0.1 k/uL (0-0.2); Basophils % (A) 0 %; Eosinophils # (A) 0.3 k/uL (0-0.7); Eosinophils % (A) 2 %; HCT 42.7 % (34.0-46.0); HGB 14.3 gm/dL (11.4-16.0); Lymphocytes % (A) 16 %; MCH 31.4 pg (25.0-35.0); MCHC 33.5 g/dL (31.0-37.0); MCV 93.6 fL (80.0-100.0); Mean Platelet Volume 9.8; Monocytes # (A) 0.6 k/uL (0-1.0); Monocytes % (A) 5 %; Neutrophils # (A) 9.2 k/uL (1.3-7.7); Neutrophils % (A) 75 %; Platelet Count 242 k/uL (150-450); RBC 4.56 m/uL (3.80-5.40); RDW 13.3 % (11.5-15.5); WBC 12.2 k/uL (3.8-10.6)
[2024-08-14 22:07] LABS: ALT 30 U/L (4-34); AST 26 U/L (14-36); African American GFR (CKD) >90 (>60 ml/min/1.73 sqM); Albumin 4.4 g/dL (3.5-5.0); Alkaline Phosphatase 82 U/L (38-126); Amylase 46 U/L (30-110); Anion Gap 7 mmol/L; Blood Urea Nitrogen 19 mg/dL (7-17); C Reactive Protein 1.2 mg/dL (<1.0); Calcium 9.4 mg/dL (8.4-10.2); Carbon Dioxide 22 mmol/L (22-30); Chloride 108 mmol/L (98-107); Glucose 140 mg/dL (74-99); Lipase 64 U/L (23-300); Non-African American GFR(CKD) >90 (>60 ml/min/1.73 sqM); Potassium 4.4 mmol/L (3.5-5.1); Sodium 137 mmol/L (137-145); Total Bilirubin 0.5 mg/dL (0.2-1.3); Total Protein 7.1 g/dL (6.3-8.2)
[2024-08-14] MEDS: droPERidol 5 MG/2 ML VIAL IVP ONE (22:37)
[2024-08-14 23:01] LABS: Appearance,Urine Clear (Clear); Bilirubin,Urine Negative (Negative); Blood,Urine Negative (Negative); Color,Urine Colorless; Glucose,Urine (UA) Negative (Negative); Ketones,Urine Negative (Negative); Leukocyte Esterase,Urine Small (Negative); Mucus,Urine Rare /hpf; Nitrite,Urine Negative (Negative); PH, Urine 6.5 (5.0-8.0); Protein,Urine Negative (Negative); RBC,Urine 1 /hpf (0-5); Specific Gravity,Urine 1.007 (1.001-1.035); Squamous Epithelial Cell,Urine 1 /hpf (0-4); Urobilinogen,Urine <2.0 mg/dL (<2.0); WBC,Urine 4 /hpf (0-5)
[2024-08-14] MEDS: KETOROLAC 15 MG/ML 1 ML VIAL IVP STA (23:34)
--- NOTE | 2024-08-15 00:23 | CT ---
EXAM: CT Abdomen and Pelvis Without Intravenous Contrast CLINICAL HISTORY: ITS.REASON CT Reason: right flank pain TECHNIQUE: Axial computed tomography images of the abdomen and pelvis without intravenous contrast. CTDI is 18.5 mGy and DLP is 1004.3 mGy-cm. This CT exam was performed using one or more of the following dose reduction techniques: automated exposure control, adjustment of the mA and/or kV according to patient size, and/or use of iterative reconstruction technique. COMPARISON: No relevant prior studies available. FINDINGS: Lung bases: Unremarkable. No mass. No consolidation. ABDOMEN: Liver: Unremarkable. Gallbladder and bile ducts: Unremarkable. No calcified stones. No ductal dilation. Pancreas: Unremarkable. No ductal dilation. Spleen: Unremarkable. No splenomegaly. Adrenals: Unremarkable. No mass. Kidneys and ureters: Unremarkable. No hydronephrosis, nephrolithiasis, or obstructive uropathy. Stomach and bowel: Diverticulosis, without acute diverticulitis. No small bowel obstruction. No free intraperitoneal air. PELVIS: Appendix: No acute appendicitis. Bladder: Unremarkable. No stones. Reproductive: Hysterectomy. ABDOMEN and PELVIS: Intraperitoneal space: Unremarkable. No free air. No significant fluid collection. Bones/joints: No acute fracture. No dislocation. Soft tissues: Unremarkable. Vasculature: Unremarkable. No abdominal aortic aneurysm. Lymph nodes: Unremarkable. No enlarged lymph nodes. IMPRESSION: 1. No hydronephrosis, nephrolithiasis, or obstructive uropathy. 2. Hysterectomy.
[2024-08-15 01:07] VITALS: BP 127/78; PULSE 86; TEMP 98.1
== END 2024-08-15 01:00 | disposition home or self-care (01) ==
LOC: EC 20:57
CPT/HCPCS: 36415; 74176; 80053; 81001; 82150; 83690; 85025; 86140; 96374; 96375; 99284

== ENCOUNTER 2024-08-15 16:05 | Emergency (ER) | payer OTHER ==
[2024-08-15 16:09] VITALS: TEMP 98.5
--- NOTE | 2024-08-15 16:42 | ED ---
Abdominal Pain HPI - General Chief Complaint: Abdominal Pain Stated Complaint: upper R quadrant pain Time Seen by Provider: 08/15/24 16:39 Source: patient, RN notes reviewed Mode of arrival: ambulatory Limitations: no limitations - History of Present Illness Initial Comments: 53-year-old female presenting to the ER with chief complaint of right flank pain x 4 days. Describes pain as intermittent dull pain that begins in the right flank and radiates into the epigastric region. She is also experiencing nausea and vomiting. She has been seen for this issue 2 times in the ER over the past 4 days where she has underwent gallbladder ultrasound and CT scan of abdomen which all returned negative. She followed up with her PCP today as symptoms are not improving, PCP instructed her to return to ER for repeat labs, pain control, and IV fluids. Patient states she has a surgery and GI follow-up next week for consultation for endoscope and HIDA scan. Denies fevers, chills. States she is tolerating limited orals due to vomiting. - Related Data Home Medications Medication Instructions Recorded Confirmed Cholecalciferol [Vitamin D3 (10 10 mcg PO DAILY 02/18/23 08/15/24 Mcg = 400 Iu)] Levocetirizine Dihydrochloride 5 mg PO HS 02/18/23 08/15/24 [Xyzal] Multivitamins, Thera [Multivitamin 1 tab PO DAILY 02/18/23 08/15/24 (formulary)] Previous Rx's Medication Instructions Recorded Ketorolac [Toradol] 10 mg PO Q8HR #15 tab 08/12/24 Famotidine [Pepcid] 20 mg PO BID #14 tablet 08/15/24 HYDROcodone/APAP 5-325MG [[place] 5] 1 each PO Q6HR PRN #12 tab 08/15/24 Allergies Allergy/AdvReac Type Severity Reaction Status Date / Time aspirin [From Percodan] Allergy Rash/Hives Verified 08/15/24 18:06 codeine Allergy Rash/Hives Verified 08/15/24 18:06 oxycodone [From Percodan] Allergy Rash/Hives Verified 08/15/24 18:06 Sulfa (Sulfonamide Allergy Rash/Hives/ Verified 08/15/24 18:06 Antibiotics) SOB sulfamethoxazole Allergy Rash/Hives/ Verified 08/15/24 18:06 [From Bactrim] SOB trimethoprim [From Bactrim] Allergy Rash/Hives/ Verified 08/15/24 18:06 SOB Review of Systems ROS Statement: Those systems with pertinent positive or pertinent negative responses have been documented in the HPI. ROS Other: All systems not noted in ROS Statement are negative. Past Medical History Past Medical History: Diabetes Mellitus, Skin Disorder Additional Past Medical History / Comment(s): Seasonal allergies, pre- diabetic History of Any Multi-Drug Resistant Organisms: None Reported Past Surgical History: Section, Hysterectomy Additional Past Surgical History / Comment(s): heel spurs Past Anesthesia/Blood Transfusion Reactions: No Reported Reaction Past Psychological History: Anxiety Smoking Status: Never smoker - Past Family History Mother Family Medical History: Deep Vein Thrombosis (DVT) General Exam Limitations: no limitations General appearance: alert, in no apparent distress Head exam: Present: atraumatic, normocephalic, normal inspection Eye exam: Present: normal appearance, PERRL, EOMI. Absent: scleral icterus, conjunctival injection, periorbital swelling ENT exam: Present: normal exam, mucous membranes moist Respiratory exam: Present: normal lung sounds bilaterally. Absent: respiratory distress, wheezes, rales, rhonchi, stridor Cardiovascular Exam: Present: regular rate, normal rhythm, normal heart sounds. Absent: systolic murmur, diastolic murmur, rubs, gallop, clicks GI/Abdominal exam: Present: soft, normal bowel sounds. Absent: distended, tenderness, guarding, rebound, rigid Back exam: Absent: CVA tenderness (R), CVA tenderness (L) Neurological exam: Present: alert, oriented X3 Psychiatric exam: Present: normal affect, normal mood Skin exam: Present: warm, dry, intact, normal color. Absent: rash Course Vital Signs 08/15/24 08/15/24 08/15/24 16:07 18:50 19:24 Temperature 98.5 F Pulse Rate 109 H 100 102 H Respiratory 20 18 18 Rate Blood Pressure 125/78 122/78 120/77 O2 Sat by Pulse 99 98 97 Oximetry Medical Decision Making - Medical Decision Making Was pt. sent in by a medical professional or institution (, PA, MEDICAL SCIENTIFIC OFFICER, urgent care, hospital, or [place] health care facility...) When possible be specific @ -Sent by PCP for repeat labs and IV fluids Did you speak to anyone other than the patient for history (EMS, parent, family, police, friend...)? What history was obtained from this source @ -No Did you review nursing and triage notes (agree or disagree)? Why? @ -I reviewed and agree with nursing and triage notes Were old charts reviewed (outside hosp., previous admission, EMS record, old EKG, old radiological studies, urgent care reports/EKG's, [place] health care facility records)? Report findings @ -Reviewed ER visits, lab work, and imaging over the past 3 days Differential Diagnosis (chest pain, altered mental status, abdominal pain women, abdominal pain men, vaginal bleeding, weakness, fever, dyspnea, syncope, headache, dizziness, GI bleed, back pain, seizure, CVA, palpatations, mental health, musculoskeletal)? @ -Differential Abdominal Pain Women: Appendicitis, Cholecystitis, diverticulosis, ischemic bowel, pancreatitis, hepatitis, UTI, gastroenteritis, AAA, incarcerated hernia, bowel obstruction, constipation, inflammatory bowel, hepatitis, peptic ulcer disease, splenic in farction, perforated viscus, vulvitis, ovarian torsion, PID, kidney stone, placenta abruption, this is not meant to be an all-inclusive list EKG interpreted by me (3pts min.). @ -None X-rays interpreted by me (1pt min.). @ -None done CT interpreted by me (1pt min.). @ -None done U/S interpreted by me (1pt. min.). @ -None done What testing was considered but not performed or refused? (CT, X-rays, U/S, labs)? Why? @ -Imaging not performed as ultrasound gallbladder and CT abdomen was performed within the last 3 days, no change in symptoms What meds were considered but not given or refused? Why? @ -None Did you discuss the management of the patient with other professionals (professionals i.e. , PA, MEDICAL SCIENTIFIC OFFICER, lab, RT, psych nurse, director social welfare, family resource management specialist, teacher, senior escrow officer, lining caser)? Give summary @ -No Was smoking cessation discussed for >3mins.? @ -No Was critical care preformed (if so, how long)? @ -No Were there social determinants of health that impacted care today? How? (Homeles sness, low income, unemployed, alcoholism, drug addiction, transportation, low edu. Level, literacy, decrease access to med. care, shelter, rehab)? @ -No Was there de-escalation of care discussed even if they declined (Discuss DNR or withdrawal of care, Hospice)? DNR status @ -No What co-morbidities impacted this encounter? (DM, HTN, Smoking, COPD, CAD, Cancer, CVA, ARF, Chemo, Hep., AIDS, mental health diagnosis, sleep apnea, morbid obesity)? @ -None Was patient admitted / discharged? Hospital course, mention meds given and route, prescriptions, significant lab abnormalities, going to OR and other pertinent info. @ -Discharged. This is a 53-year-old female presenting with right flank pain x 4 days with nausea and vomiting. Patient has had multiple ER visits for this complaint over the past [address] scan of abdomen and ultrasound gallbladder which was remarkable for gallstones, however no acute process. Patient was sent today by her PCP for continued pain and vomiting. Patient has follow-up with surgery and GI next week. Patient is afebrile, mild tachycardia on initial evaluation at 109 bpm, decreases to 100 bpm upon reevaluation.. Abdomen is soft and nontender. Patient is provided with IV fluids and analgesics. Laboratory studies including CBC, CMP, lactic acid, lipase remarkable for slightly increased white blood cell count at 14, increased from 12 last visit, however otherwise unremarkable. Upon reevaluation, patient states symptoms have improved. Discussed findings with patient. Discussed symptoms likely due to biliary dyskinesia. As patient has had 3 ER visits over the past 4 days for this complaint, offered patient admission for cholecystecto my, however patient opts to be discharged and follow-up outpatient for upcoming surgical and GI consultations next week. I believe this is reasonable as there are no signs of acute cholecystitis. Return precautions discussed, patient is agreeable to plan. Patient was discharged with analgesics. Case was discussed with my ED attending Dr. Nevarez. Undiagnosed new problem with uncertain prognosis? @ -No Drug Therapy requiring intensive monitoring for toxicity (Heparin, Nitro, Insulin, Cardizem)? @ -No Were any procedures done? @ -No Diagnosis/symptom? @ -Biliary dyskinesia Acute, or Chronic, or Acute on Chronic? @ -Acute Uncomplicated (without systemic symptoms) or Complicated (systemic symptoms)? @ -Uncomplicated Side effects of treatment? @ -No Exacerbation, Progression, or Severe Exacerbation? @ -No Poses a threat to life or bodily function? How? (Chest pain, [place], [place], pneumonia, PE, COPD, DKA, ARF, appy, cholecystitis, CVA, Diverticulitis, Homicidal, Suicidal, threat to staff... and all critical care pts) @ -Unlikely - Lab Data Result diagrams: 08/15/24 16:50 08/15/24 16:50 Lab Results 08/15/24 08/15/24 08/15/24 Range/Units 16:50 16:50 16:50 WBC 14.6 H (3.8-10.6) k/uL RBC 4.74 (3.80-5.40) m/uL Hgb 14.8 (11.4-16.0) gm/dL Hct 44.7 (34.0-46.0) % MCV 94.4 (80.0-100.0) fL MCH 31.2 (25.0-35.0) pg MCHC 33.1 (31.0-37.0) g/dL RDW 12.8 (11.5-15.5) % Plt Count 240 (150-450) k/uL MPV 9.2 Neutrophils % 85 % Lymphocytes % 8 % Monocytes % 5 % Eosinophils % 1 % Basophils % 0 % Neutrophils # 12.4 H (1.3-7.7) k/uL Lymphocytes # 1.1 (1.0-4.8) k/uL Monocytes # 0.8 (0-1.0) k/uL Eosinophils # 0.1 (0-0.7) k/uL Basophils # 0.0 (0-0.2) k/uL Sodium 137 (137-145) mmol/L Potassium 4.1 (3.5-5.1) mmol/L Chloride 106 (98-107) mmol/L Carbon Dioxide 25 (22-30) mmol/L Anion Gap 6 mmol/L BUN 13 (7-17) mg/dL Creatinine 0.59 (0.52-1.04) mg/dL Est GFR (CKD-EPI)AfAm >90 (>60 ml/min/1.73 sqM) Est GFR (CKD-EPI)NonAf >90 (>60 ml/min/1.73 sqM) Glucose 133 H (74-99) mg/dL Plasma Lactic Acid Richard 1.0 (0.7-2.0) mmol/L Calcium 9.6 (8.4-10.2) mg/dL Total Bilirubin 1.1 (0.2-1.3) mg/dL AST 24 (14-36) U/L ALT 31 (4-34) U/L Alkaline Phosphatase 93 (38-126) U/L Total Protein 7.4 (6.3-8.2) g/dL Albumin 4.6 (3.5-5.0) g/dL Lipase 34 (23-300) U/L Disposition Clinical Impression: Biliary dyskinesia Disposition: HOME SELF-CARE Condition: Stable Instructions (If sedation given, give patient instructions): Biliary Dyskinesia (DC) Additional Instructions: Thank [place] as needed for pain. Follow-up with GI and surgery next week. Please return to the Emergency Department if symptoms worsen or any other concerns. Prescriptions: HYDROcodone/APAP 5-325MG [[place] 5] 1 each PO Q6HR PRN #12 tab PRN Reason: Pain Is patient prescribed a controlled substance at d/c from ED?: No Referrals: Radha Claros MD [Primary Care Provider] - 1-2 days Time of Disposition: 19:07
[2024-08-15] MEDS: METOCLOPRAMIDE 5 MG/ML 2 ML VIAL IVP STA (16:56)
[2024-08-15] MEDS: KETOROLAC 15 MG/ML 1 ML VIAL IVP STA (16:56)
[2024-08-15] MEDS: SODIUM CHLORIDE 0.9% 1,000 ML IV STA (16:56)
[2024-08-15 17:00] LABS: Basophils % (A) 0 %; Eosinophils # (A) 0.1 k/uL (0-0.7); Eosinophils % (A) 1 %; HCT 44.7 % (34.0-46.0); HGB 14.8 gm/dL (11.4-16.0); Lymphocytes # (A) 1.1 k/uL (1.0-4.8); Lymphocytes % (A) 8 %; MCH 31.2 pg (25.0-35.0); MCHC 33.1 g/dL (31.0-37.0); MCV 94.4 fL (80.0-100.0); Mean Platelet Volume 9.2; Monocytes # (A) 0.8 k/uL (0-1.0); Monocytes % (A) 5 %; Neutrophils # (A) 12.4 k/uL (1.3-7.7); Neutrophils % (A) 85 %; Platelet Count 240 k/uL (150-450); RBC 4.74 m/uL (3.80-5.40); RDW 12.8 % (11.5-15.5); WBC 14.6 k/uL (3.8-10.6)
[2024-08-15 17:27] LABS: ALT 31 U/L (4-34); AST 24 U/L (14-36); African American GFR (CKD) >90 (>60 ml/min/1.73 sqM); Albumin 4.6 g/dL (3.5-5.0); Alkaline Phosphatase 93 U/L (38-126); Anion Gap 6 mmol/L; Blood Urea Nitrogen 13 mg/dL (7-17); Calcium 9.6 mg/dL (8.4-10.2); Carbon Dioxide 25 mmol/L (22-30); Chloride 106 mmol/L (98-107); Glucose 133 mg/dL (74-99); Lipase 34 U/L (23-300); Non-African American GFR(CKD) >90 (>60 ml/min/1.73 sqM); Potassium 4.1 mmol/L (3.5-5.1); Sodium 137 mmol/L (137-145); Total Bilirubin 1.1 mg/dL (0.2-1.3); Total Protein 7.4 g/dL (6.3-8.2)
[2024-08-15 18:51] VITALS: RESP 18
[2024-08-15 19:25] VITALS: BP 120/77; PULSE 102
== END 2024-08-15 19:26 | disposition home or self-care (01) ==
LOC: EC 16:05
CPT/HCPCS: 36415; 80053; 83605; 83690; 85025; 96361; 96374; 96375; 99284

== ENCOUNTER 2024-08-16 18:06 | Observation (INO) | payer OTHER ==
--- NOTE | 2024-08-16 18:23 | ED ---
Abdominal Pain HPI - General Chief Complaint: Abdominal Pain Stated Complaint: ABD pain Time Seen by Provider: 08/16/24 18:22 Source: patient Mode of arrival: ambulatory Limitations: no limitations - History of Present Illness Initial Comments: 53-year-old female present with chief complaint of abdominal pain. This is pain in the right upper quadrant and epigastric region. Patient has been having repeated episodes of this pain, she has known history of gallstones. She has been here 4 times in the last 5 days for this pain. She attempted to follow-up outpatient, however states that she cannot be scheduled for surgery until September and the pain has been persistent despite [place] and Toradol. She has also been using Zofran which has not been helping. No chest pain or difficulty breathing. No vomiting. No hematochezia or melena. No fevers. - Related Data Home Medications Medication Instructions Recorded Confirmed Cholecalciferol [Vitamin D3 (10 10 mcg PO DAILY 02/18/23 08/15/24 Mcg = 400 Iu)] Levocetirizine Dihydrochloride 5 mg PO HS 02/18/23 08/15/24 [Xyzal] Multivitamins, Thera [Multivitamin 1 tab PO DAILY 02/18/23 08/15/24 (formulary)] Previous Rx's Medication Instructions Recorded Ketorolac [Toradol] 10 mg PO Q8HR #15 tab 08/12/24 Famotidine [Pepcid] 20 mg PO BID #14 tablet 08/15/24 HYDROcodone/APAP 5-325MG [[place]hen[place] 5] 1 each PO Q6HR PRN #12 tab 08/15/24 Allergies Allergy/AdvReac Type Severity Reaction Status Date / Time acetaminophen [From [place]y] Allergy Rash/Hives Verified 08/16/24 18:20 aspirin [From Percodan] Allergy Rash/Hives Verified 08/16/24 18:20 codeine Allergy Rash/Hives Verified 08/16/24 18:20 hydrocodone [From [place]heny] Allergy Rash/Hives Verified 08/16/24 18:20 oxycodone [From Percodan] Allergy Rash/Hives Verified 08/16/24 18:20 Sulfa (Sulfonamide Allergy Rash/Hives Verified 08/16/24 18:20 Antibiotics) Review of Systems ROS Statement: Those systems with pertinent positive or pertinent negative responses have been documented in the HPI. ROS Other: All systems not noted in ROS Statement are negative. Past Medical History Past Medical History: Diabetes Mellitus, Skin Disorder Additional Past Medical History / Comment(s): Seasonal allergies, pre- diabetic History of Any Multi-Drug Resistant Organisms: None Reported Past Surgical History: Section, Hysterectomy Additional Past Surgical History / Comment(s): heel spurs Past Anesthesia/Blood Transfusion Reactions: No Reported Reaction Past Psychological History: Anxiety Smoking Status: Never smoker - Past Family History Mother Family Medical History: Deep Vein Thrombosis (DVT) General Exam - General Exam Comments Initial Comments: Visual Physical Exam Vital signs reviewed General: Well-appearing, nontoxic, no acute distress. Head: Normocephalic, atraumatic Eyes: PERRLA, EOMI ENT: Airway patent Chest: Nonlabored breathing Skin: No visual rash, normal skin tone Neuro: Alert and oriented 3 Musculoskeletal: No gross abnormalities Limitations: no limitations General appearance: alert, in no apparent distress Head exam: Present: atraumatic, normocephalic, normal inspection Eye exam: Present: normal appearance, EOMI Neck exam: Present: normal inspection. Absent: meningismus Respiratory exam: Present: normal lung sounds bilaterally. Absent: respiratory distress, wheezes, rales, rhonchi, stridor Cardiovascular Exam: Present: regular rate, normal rhythm, normal heart sounds. Absent: systolic murmur, diastolic murmur, rubs, gallop, clicks GI/Abdominal exam: Present: soft, tenderness. Absent: distended, guarding, rebound, rigid Neurological exam: Present: alert, oriented X3 Psychiatric exam: Present: normal affect, normal mood Skin exam: Present: warm, dry Course Vital Signs 08/16/24 08/16/24 18:15 21:17 Temperature 98.5 F 98.9 F Pulse Rate 118 H 98 Respiratory 18 16 Rate Blood Pressure 117/62 133/81 O2 Sat by Pulse 99 98 Oximetry Medical Decision Making - Medical Decision Making Was pt. sent in by a medical professional or institution (, PA, E COMMERCE STRATEGIST, urgent care, hospital, or fpc...) When possible be specific @ -No Did you speak to anyone other than the patient for history (EMS, parent, family, police, friend...)? What history was obtained from this source @ -No Did you review nursing and triage notes (agree or disagree)? Why? @ -I reviewed and agree with nursing and triage notes Were old charts reviewed (outside hosp., previous admission, EMS record, old EKG, old radiological studies, urgent care reports/EKG's, fpc records)? Report findings @ -Recent visits are reviewed; gallbladder ultrasound from the shows cholelithiasis and hepatic steatosis Differential Diagnosis (chest pain, altered mental status, abdominal pain women, abdominal pain men, vaginal bleeding, weakness, fever, dyspnea, syncope, headache, dizziness, GI bleed, back pain, seizure, CVA, palpatations, mental health, musculoskeletal)? @ -[facility] [place] Differential Abdominal Pain Women: Appendicitis, Cholecystitis, diverticulosis, ischemic bowel, pancreatitis, hepatitis, UTI, gastroenteritis, AAA, incarcerated hernia, bowel obstruction, constipation, inflammatory bowel, hepatitis, peptic ulcer disease, splenic infarction, perforated viscus, vulvitis, ovarian torsion, PID, kidney stone, placenta abruption... This is not meant to be an all-inclusive list EKG interpreted by me (3pts min.). @ -As above X-rays interpreted by me (1pt min.). @ -None done CT interpreted by me (1pt min.). @ -None done U/S interpreted by me (1pt. min.). @ -None done What testing was considered but not performed or refused? (CT, X-rays, U/S, labs)? Why? @ -None What meds were considered but not given or refused? Why? @ -None Did you discuss the management of the patient with other professionals (professionals i.e. , PA, E COMMERCE STRATEGIST, lab, RT, psych nurse, social welfare administrator, hydrogen power plant engineer, teacher, compliance review officer, telehealth case manager)? Give summary @ -I spoke with Dr. De Leon who accepts admission for observation Was smoking cessation discussed for >3mins.? @ -No Was critical care preformed (if so, how long)? @ -No Were there social determinants of health that impacted care today? How? (Homelessness, low income, unemployed, alcoholism, drug addiction, transport ation, low edu. Level, literacy, decrease access to med. care, penitentiary, rehab)? @ -No Was there de-escalation of care discussed even if they declined (Discuss DNR or withdrawal of care, Hospice)? DNR status @ -No What co-morbidities impacted this encounter? (DM, HTN, Smoking, COPD, CAD, Cancer, CVA, ARF, Chemo, Hep., AIDS, mental health diagnosis, sleep apnea, morbid obesity)? @ -None Was patient admitted / discharged? Hospital course, mention meds given and route, prescriptions, significant lab abnormalities, going to OR and other pertinent info. @ -53-year-old female presenting with chief complaint of right upper quadrant and epigastric pain. Has been having repeated episodes of this pain with known history of gallstones. Is unable to get in for surgery for another month and her pain has been persistent despite pain meds at home. Labs show WBC 14. Urine is pending. Given the patient's level of pain I spoke with surgeon on- call Dr. De Leon. He will accept the patient for observation and evaluate in the morning. She is placed NPO after midnight started on IV fluids and pain med ication as well as nausea medication. She is agreeable with this plan. I discussed this case with my attending Dr. Holbrook Undiagnosed new problem with uncertain prognosis? @ -No Drug Therapy requiring intensive monitoring for toxicity (Heparin, Nitro, Insulin, Cardizem)? @ -No Were any procedures done? @ -No Diagnosis/symptom? @ -Intractable abdominal pain, symptomatic cholelithiasis Acute, or Chronic, or Acute on Chronic? @ -Acute Uncomplicated (without systemic symptoms) or Complicated (systemic symptoms)? @ -Complicated Side effects of treatment? @ -No Exacerbation, Progression, or Severe Exacerbation? @ -No Poses a threat to life or bodily function? How? (Chest pain, [place], [place], pneumonia, PE, COPD, DKA, ARF, appy, cholecystitis, CVA, Diverticulitis, Homicidal, Suicidal, threat to staff... and all critical care pts) @ -Potential - Lab Data Result diagrams: 08/16/24 19:41 08/16/24 19:41 Lab Results 08/16/24 08/16/24 08/16/24 Range/Units 19:41 19:41 19:41 WBC 14.0 H (3.8-10.6) k/uL RBC 4.69 (3.80-5.40) m/uL Hgb 14.6 (11.4-16.0) gm/dL Hct 44.7 (34.0-46.0) % MCV 95.4 (80.0-100.0) fL MCH 31.1 (25.0-35.0) pg MCHC 32.6 (31.0-37.0) g/dL RDW 12.8 (11.5-15.5) % Plt Count 267 (150-450) k/uL MPV 9.2 Neutrophils % 83 % Lymphocytes % 10 % Monocytes % 5 % Eosinophils % 1 % Basophils % 0 % Neutrophils # 11.6 H (1.3-7.7) k/uL Lymphocytes # 1.4 (1.0-4.8) k/uL Monocytes # 0.7 (0-1.0) k/uL Eosinophils # 0.1 (0-0.7) k/uL Basophils # 0.0 (0-0.2) k/uL Sodium 141 (137-145) mmol/L Potassium 4.4 (3.5-5.1) mmol/L Chloride 106 (98-107) mmol/L Carbon Dioxide 26 (22-30) mmol/L Anion Gap 9 mmol/L BUN 14 (7-17) mg/dL Creatinine 0.63 (0.52-1.04) mg/dL Est GFR (CKD-EPI)AfAm >90 (>60 ml/min/1.73 sqM) Est GFR (CKD-EPI)NonAf >90 (>60 ml/min/1.73 sqM) Glucose 134 H (74-99) mg/dL Plasma Lactic Acid Richard 0.9 (0.7-2.0) mmol/L Calcium 9.6 (8.4-10.2) mg/dL Total Bilirubin 0.9 (0.2-1.3) mg/dL AST 21 (14-36) U/L ALT 27 (4-34) U/L Alkaline Phosphatase 78 (38-126) U/L Total Protein 7.5 (6.3-8.2) g/dL Albumin 4.5 (3.5-5.0) g/dL Amylase 41 (30-110) U/L Lipase 30 (23-300) U/L Urine Color Urine Appearance (Clear) Urine pH (5.0-8.0) Ur Specific Wheeler (1.001-1.035) Urine Protein (Negative) Urine Glucose (UA) (Negative) Urine Ketones (Negative) Urine Blood (Negative) Urine Nitrite (Negative) Urine Bilirubin (Negative) Urine Urobilinogen (<2.0) mg/dL Ur Leukocyte Esterase (Negative) Urine RBC (0-5) /hpf Urine WBC (0-5) /hpf Ur Squamous Epith Cells (0-4) /hpf Urine Mucus (None) /hpf 08/16/24 Range/Units 21:20 WBC (3.8-10.6) k/uL RBC (3.80-5.40) m/uL Hgb (11.4-16.0) gm/dL Hct (34.0-46.0) % MCV (80.0-100.0) fL MCH (25.0-35.0) pg MCHC (31.0-37.0) g/dL RDW (11.5-15.5) % Plt Count (150-450) k/uL MPV Neutrophils % % Lymphocytes % % Monocytes % % Eosinophils % % Basophils % % Neutrophils # (1.3-7.7) k/uL Lymphocytes # (1.0-4.8) k/uL Monocytes # (0-1.0) k/uL Eosinophils # (0-0.7) k/uL Basophils # (0-0.2) k/uL Sodium (137-145) mmol/L Potassium (3.5-5.1) mmol/L Chloride (98-107) mmol/L Carbon Dioxide (22-30) mmol/L Anion Gap mmol/L BUN (7-17) mg/dL Creatinine (0.52-1.04) mg/dL Est GFR (CKD-EPI)AfAm (>60 ml/min/1.73 sqM) Est GFR (CKD-EPI)NonAf (>60 ml/min/1.73 sqM) Glucose (74-99) mg/dL Plasma Lactic Acid Richard (0.7-2.0) mmol/L Calcium (8.4-10.2) mg/dL Total Bilirubin (0.2-1.3) mg/dL AST (14-36) U/L ALT (4-34) U/L Alkaline Phosphatase (38-126) U/L Total Protein (6.3-8.2) g/dL Albumin (3.5-5.0) g/dL Amylase (30-110) U/L Lipase (23-300) U/L Urine Color Light Yellow Urine Appearance Clear (Clear) Urine pH 6.5 (5.0-8.0) Ur Specific Wheeler 1.017 (1.001-1.035) Urine Protein Trace H (Negative) Urine Glucose (UA) Negative (Negative) Urine Ketones 2+ H (Negative) Urine Blood Negative (Negative) Urine Nitrite Negative (Negative) Urine Bilirubin Negative (Negative) Urine Urobilinogen <2.0 (<2.0) mg/dL Ur Leukocyte Esterase Small H (Negative) Urine RBC 8 H (0-5) /hpf Urine WBC 12 H (0-5) /hpf Ur Squamous Epith Cells 6 H (0-4) /hpf Urine Mucus Rare H (None) /hpf Disposition Clinical Impression: Biliary dyskinesia, Abdominal pain, Cholelithiasis Disposition: ADMITTED IP TO THIS HOSP Condition: Fair Time of Disposition: 21:44
[2024-08-16 19:49] LABS: Basophils % (A) 0 %; Eosinophils # (A) 0.1 k/uL (0-0.7); Eosinophils % (A) 1 %; HCT 44.7 % (34.0-46.0); HGB 14.6 gm/dL (11.4-16.0); Lymphocytes # (A) 1.4 k/uL (1.0-4.8); Lymphocytes % (A) 10 %; MCH 31.1 pg (25.0-35.0); MCHC 32.6 g/dL (31.0-37.0); MCV 95.4 fL (80.0-100.0); Mean Platelet Volume 9.2; Monocytes # (A) 0.7 k/uL (0-1.0); Monocytes % (A) 5 %; Neutrophils # (A) 11.6 k/uL (1.3-7.7); Neutrophils % (A) 83 %; Platelet Count 267 k/uL (150-450); RBC 4.69 m/uL (3.80-5.40); RDW 12.8 % (11.5-15.5)
[2024-08-16 20:02] LABS: ALT 27 U/L (4-34); AST 21 U/L (14-36); African American GFR (CKD) >90 (>60 ml/min/1.73 sqM); Albumin 4.5 g/dL (3.5-5.0); Alkaline Phosphatase 78 U/L (38-126); Amylase 41 U/L (30-110); Anion Gap 9 mmol/L; Blood Urea Nitrogen 14 mg/dL (7-17); Calcium 9.6 mg/dL (8.4-10.2); Carbon Dioxide 26 mmol/L (22-30); Chloride 106 mmol/L (98-107); Glucose 134 mg/dL (74-99); Lipase 30 U/L (23-300); Non-African American GFR(CKD) >90 (>60 ml/min/1.73 sqM); Potassium 4.4 mmol/L (3.5-5.1); Sodium 141 mmol/L (137-145); Total Bilirubin 0.9 mg/dL (0.2-1.3); Total Protein 7.5 g/dL (6.3-8.2)
[2024-08-16] MEDS: ONDANSETRON 4 MG/2 ML VIAL IVP STA (20:53)
[2024-08-16] MEDS: SODIUM CHLORIDE 0.9% 1,000 ML IV ONE (20:53)
[2024-08-16] MEDS: KETOROLAC 15 MG/ML 1 ML VIAL IVP STA (21:36)
[2024-08-16] MEDS ORDERED: MORPHINE SULFATE 4 MG/ML SYRINGE IV PRN (21:41)
[2024-08-16] MEDS ORDERED: NALOXONE 0.4 MG/ML 1 ML VIAL IV PRN (21:41)
[2024-08-16 22:24] LABS: Appearance,Urine Clear (Clear); Bilirubin,Urine Negative (Negative); Blood,Urine Negative (Negative); Color,Urine Light Yellow; Glucose,Urine (UA) Negative (Negative); Ketones,Urine 2+ (Negative); Leukocyte Esterase,Urine Small (Negative); Mucus,Urine Rare /hpf; Nitrite,Urine Negative (Negative); PH, Urine 6.5 (5.0-8.0); Protein,Urine Trace (Negative); RBC,Urine 8 /hpf (0-5); Specific Gravity,Urine 1.017 (1.001-1.035); Squamous Epithelial Cell,Urine 6 /hpf (0-4); Urobilinogen,Urine <2.0 mg/dL (<2.0); WBC,Urine 12 /hpf (0-5)
[2024-08-16] MEDS: DOCUSATE 100 MG CAP PO STA (23:41)
[2024-08-16] MEDS: SODIUM CHLORIDE 0.9% 1,000 ML IV SCH (23:41)
[2024-08-17] MEDS: MELATONIN 5 MG TABLET PO SCH (00:14)
[2024-08-17] MEDS: KETOROLAC 15 MG/ML 1 ML VIAL IVP PRN (02:33)
[2024-08-17] MEDS: ONDANSETRON 4 MG/2 ML VIAL IVP PRN (08:36)
[2024-08-17 09:53] LABS: Basophils % (A) 0 %; Eosinophils # (A) 0.2 k/uL (0-0.7); Eosinophils % (A) 2 %; HGB 12.3 gm/dL (11.4-16.0); Lymphocytes # (A) 1.5 k/uL (1.0-4.8); Lymphocytes % (A) 17 %; MCH 30.2 pg (25.0-35.0); MCHC 31.4 g/dL (31.0-37.0); MCV 96.4 fL (80.0-100.0); Mean Platelet Volume 9.4; Monocytes # (A) 0.6 k/uL (0-1.0); Monocytes % (A) 7 %; Neutrophils # (A) 6.7 k/uL (1.3-7.7); Neutrophils % (A) 72 %; Platelet Count 217 k/uL (150-450); RBC 4.05 m/uL (3.80-5.40); WBC 9.2 k/uL (3.8-10.6)
[2024-08-17 10:04] LABS: ALT 21 U/L (4-34); AST 18 U/L (14-36); African American GFR (CKD) >90 (>60 ml/min/1.73 sqM); Albumin 3.4 g/dL (3.5-5.0); Albumin/Globulin Ratio 1.3; Alkaline Phosphatase 68 U/L (38-126); Anion Gap 7 mmol/L; Blood Urea Nitrogen 15 mg/dL (7-17); Calcium 8.6 mg/dL (8.4-10.2); Carbon Dioxide 25 mmol/L (22-30); Chloride 108 mmol/L (98-107); Globulin 2.6 g/dL; Glucose 123 mg/dL (74-99); Non-African American GFR(CKD) >90 (>60 ml/min/1.73 sqM); Potassium 4.1 mmol/L (3.5-5.1); Sodium 140 mmol/L (137-145); Total Bilirubin 0.8 mg/dL (0.2-1.3)
[2024-08-17] MEDS: LACTATED RINGERS 1,000 ML BAG IV STA (10:22)
[2024-08-17] MEDS ORDERED: fentaNYL (PF) 50 MCG/ML 2 ML AMP ONE (10:29)
[2024-08-17] MEDS ORDERED: ROCURONIUM 10 MG/ML (5 ML VIAL) IV ONE (10:29)
[2024-08-17] MEDS ORDERED: KETOROLAC 15 MG/ML 1 ML VIAL ONE (10:29)
[2024-08-17] MEDS ORDERED: ceFAZolin 1 GM/50 ML BAG (PMX) ONE (10:29)
[2024-08-17] MEDS ORDERED: MIDAZOLAM 2 MG/2 ML VIAL ONE (10:29)
[2024-08-17] MEDS ORDERED: LIDOCAINE 1% INJ 10MG/ML (20 ML MDV) ONE (10:29)
[2024-08-17] MEDS ORDERED: INDOCYANINE GREEN 25 MG VIAL IV ONE (10:29)
[2024-08-17] MEDS ORDERED: SUCCINYLCHOLINE CHLORIDE 200 MG/10 ML VIAL IV ONE (10:29)
[2024-08-17] MEDS ORDERED: NEOSTIGMINE 1 MG/ML 10 ML VIAL ONE (10:29)
[2024-08-17] MEDS ORDERED: ESMOLOL 100 MG/10 ML VIAL ONE (10:29)
[2024-08-17] MEDS ORDERED: PROPOFOL 10 MG/ML 20 ML VIAL IV ONE (10:29)
[2024-08-17] MEDS ORDERED: GLYCOPYRROLATE 0.2 MG/ML 2 ML VIAL ONE (10:29)
[2024-08-17] MEDS: HEPARIN SODIUM,PORCINE 5,000 UNIT/ML 1 ML VIAL SQ STA (10:30)
[2024-08-17] MEDS: IV FLUID CONTINUATION 1,000 ML IV ONE ×2 (10:32→13:58)
[2024-08-17] MEDS: DEXAMETHASONE SOD PHOSPHATE 4 MG/ML 1 ML VIAL IVP STA (10:33)
[2024-08-17] MEDS: SODIUM CHLORIDE 0.9% 50 ML with ceFAZolin 2,000 MG IV ONE (10:34)
[2024-08-17] MEDS: BUPIVACAINE (PF) 0.25% 30 ML VIAL SQ ONE ×2 (10:40→12:25)
[2024-08-17] MEDS: LACTATED RINGERS 1,000 ML IV ONE (11:42)
[2024-08-17] MEDS: HYDROmorphone 0.5 MG/0.5 ML SYRINGE IVP STA (13:20)
--- NOTE | 2024-08-17 15:03 | P.GSHP ---
History of Present Illness 53-year-old female present with chief complaint of abdominal pain. This is pain in the right upper quadrant and epigastric region. Patient has been having repeated episodes of this pain, she has known history of gallstones. She has been here 4 times in the last 5 days for this pain. She attempted to follow-up outpatient, however states that she cannot be scheduled for surgery until September and the pain has been persistent despite [place] and Toradol. She has also been using Zofran which has not been helping. No chest pain or difficulty breathing. No vomiting. No hematochezia or melena. No fevers. - Constitutional Constitutional: Reports as per HPI Past Medical History Past Medical History: Diabetes Mellitus, Skin Disorder Additional Past Medical History / Comment(s): Seasonal allergies, pre- diabetic, psoriasis History of Any Multi-Drug Resistant Organisms: None Reported Past Surgical History: Section, Hysterectomy Additional Past Surgical History / Comment(s): heel spurs Past Anesthesia/Blood Transfusion Reactions: No Reported Reaction Past Psychological History: Anxiety Smoking Status: Never smoker Past Alcohol Use History: None Reported Past Drug Use History: None Reported - Past Family History Mother Family Medical History: CVA/TIA Father Family Medical History: Coronary Artery Disease (CAD) Additional Family Medical History / Comment(s): Heart failure, pacemaker defibrilator Medications and Allergies Home Medications Medication Instructions Recorded Confirmed Type Cholecalciferol [Vitamin D3 (10 10 mcg PO DAILY 02/18/23 08/17/24 History Mcg = 400 Iu)] Levocetirizine Dihydrochloride 5 mg PO HS 02/18/23 08/17/24 History [Xyzal] Multivitamins, Thera [Multivitamin 1 tab PO DAILY 02/18/23 08/17/24 History (formulary)] Ketorolac [Toradol] 10 mg PO Q8HR #15 tab 08/12/24 08/17/24 Rx Famotidine [Pepcid] 20 mg PO BID #14 tablet 08/15/24 08/17/24 Rx HYDROcodone/APAP 5-325MG [[place] 5] 1 tab PO Q6HR PRN 08/17/24 08/17/24 History Allergies Allergy/AdvReac Type Severity Reaction Status Date / Time acetaminophen [From [place]] Allergy Rash/Hives Verified 08/16/24 18:20 aspirin [From Percodan] Allergy Rash/Hives Verified 08/17/24 10:30 codeine Allergy Rash/Hives Verified 08/17/24 10:30 hydrocodone [From [place]] Allergy Rash/Hives Verified 08/16/24 18:20 oxycodone [From Percodan] Allergy Rash/Hives Verified 08/17/24 10:30 Sulfa (Sulfonamide Allergy Rash/Hives/ Verified 08/17/24 10:30 Antibiotics) SOB Surgical - Exam Osteopathic Statement: *. No significant issues noted on an osteopathic structural exam other than those noted in the History and Physical/Consult. Vital Signs Temp Pulse Resp BP Pulse Ox 98.5 F 118 H 18 117/62 99 08/16/24 18:15 08/16/24 18:15 08/16/24 18:15 08/16/24 18:15 08/16/24 18:15 gen: nad cv: rrr pul: non labored breathing abd: soft, distended, tender to palpation in the right upper quadrant, no guarding or rebound tenderness Results - Labs 08/17/24 09:39 08/17/24 09:39 Abnormal Lab Results - Last 24 Hours (Table) 08/16/24 08/16/24 08/16/24 Range/Units 19:41 19:41 21:20 WBC 14.0 H (3.8-10.6) k/uL Neutrophils # 11.6 H (1.3-7.7) k/uL Chloride (98-107) mmol/L Glucose 134 H (74-99) mg/dL Total Protein (6.3-8.2) g/dL Albumin (3.5-5.0) g/dL Urine Protein Trace H (Negative) Urine Ketones 2+ H (Negative) Ur Leukocyte Esterase Small H (Negative) Urine RBC 8 H (0-5) /hpf Urine WBC 12 H (0-5) /hpf Ur Squamous Epith Cells 6 H (0-4) /hpf Urine Mucus Rare H (None) /hpf 08/17/24 Range/Units 09:39 WBC (3.8-10.6) k/uL Neutrophils # (1.3-7.7) k/uL Chloride 108 H (98-107) mmol/L Glucose 123 H (74-99) mg/dL Total Protein 6.0 L (6.3-8.2) g/dL Albumin 3.4 L (3.5-5.0) g/dL Urine Protein (Negative) Urine Ketones (Negative) Ur Leukocyte Esterase (Negative) Urine RBC (0-5) /hpf Urine WBC (0-5) /hpf Ur Squamous Epith Cells (0-4) /hpf Urine Mucus (None) /hpf Diabetes panel 08/16/24 08/17/24 Range/Units 19:41 09:39 Sodium 141 140 (137-145) mmol/L Potassium 4.4 4.1 (3.5-5.1) mmol/L Chloride 106 108 H (98-107) mmol/L Carbon Dioxide 26 25 (22-30) mmol/L BUN 14 15 (7-17) mg/dL Creatinine 0.63 0.54 (0.52-1.04) mg/dL Glucose 134 H 123 H (74-99) mg/dL Calcium 9.6 8.6 (8.4-10.2) mg/dL AST 21 18 (14-36) U/L ALT 27 21 (4-34) U/L Alkaline Phosphatase 78 68 (38-126) U/L Total Protein 7.5 6.0 L (6.3-8.2) g/dL Albumin 4.5 3.4 L (3.5-5.0) g/dL Calcium panel 08/16/24 08/17/24 Range/Units 19:41 09:39 Calcium 9.6 8.6 (8.4-10.2) mg/dL Albumin 4.5 3.4 L (3.5-5.0) g/dL Pituitary panel 08/16/24 08/17/24 Range/Units 19:41 09:39 Sodium 141 140 (137-145) mmol/L Potassium 4.4 4.1 (3.5-5.1) mmol/L Chloride 106 108 H (98-107) mmol/L Carbon Dioxide 26 25 (22-30) mmol/L BUN 14 15 (7-17) mg/dL Creatinine 0.63 0.54 (0.52-1.04) mg/dL Glucose 134 H 123 H (74-99) mg/dL Calcium 9.6 8.6 (8.4-10.2) mg/dL Adrenal panel 08/16/24 08/17/24 Range/Units 19:41 09:39 Sodium 141 140 (137-145) mmol/L Potassium 4.4 4.1 (3.5-5.1) mmol/L Chloride 106 108 H (98-107) mmol/L Carbon Dioxide 26 25 (22-30) mmol/L BUN 14 15 (7-17) mg/dL Creatinine 0.63 0.54 (0.52-1.04) mg/dL Glucose 134 H 123 H (74-99) mg/dL Calcium 9.6 8.6 (8.4-10.2) mg/dL Total Bilirubin 0.9 0.8 (0.2-1.3) mg/dL AST 21 18 (14-36) U/L ALT 27 21 (4-34) U/L Alkaline Phosphatase 78 68 (38-126) U/L Total Protein 7.5 6.0 L (6.3-8.2) g/dL Albumin 4.5 3.4 L (3.5-5.0) g/dL Assessment and Plan Assessment: 53 yo female w/ acute on chronic cholecystitis -iv abx -npo -OR today Time with Patient: Greater than 30
--- NOTE | 2024-08-17 15:12 | P.OP ---
Date of Procedure: 08/17/24 Preoperative Diagnosis: acute on chronic cholecystitis Postoperative Diagnosis: acute on chronic cholecystitis Procedure(s) Performed: robotic assisted cholecystectomy Surgeon: Timur Lund Pathology: other (gallbladder) Condition: stable Disposition: floor Indications for Procedure: acute on chronic cholecystitis Operative Findings: acute on chronic cholecystitis Description of Procedure: Patient was brought to the operative suite where she was cleaned and draped in sterile fashion. A timeout was performed and everyone agreed with the information recited. Next a number 15 blade was then used to make an incision in the right upper quadrant. A 5mm visiport was used to gain access to the abdomen. 3 more working ports were placed in the midabdomen and right upper quadrant. The 5mm visiport was then exchanged for an 8mm port. Once the patient was appropriately positioned. the gallbladder was grasped and retracted cephalad and lateral. An ovarian needle was used to decompress the gallbladder as it was taught. Electrocautery was then used to dissected from lateral to medial taking down all peritoneal attachments and adhesions. The cystic artery was identified and isolated first as it was very anterior. The cystic duct was semi-isolated and I had to double clip the cystic artery and ligate. Once this was done the cystic duct was more accessible and skeltonized medially, laterally and posteriorly. ICG was used to confirm the cystic duct and common bile duct. This double clipped proximally and one distally and ligated using electrocautery. Next we started removing the gallbladder off the gallbladder fossa using electocautery. I encountered a posterior branch of the cystic artery that started to bleed. This was controlled with two clips. We proceeded to the removed the gallbladder and was found to be very intrahepatic. The gallbladder was taken off successfully. A hemostatic timeout was performed and suction supervisor food checkers and cashiers was used suck up previous blood clots. There was stones that camem from the gallbladder due to spillage. These were removed via an endocatch bag. Another endocatch was used to removed the gallbladder. A 0 vicryl suture was used to closed the left upper quadrant fascia. The instruments were removed under direct visualization. The incisions were closed using 4-0 moncryl suture.
[2024-08-17] MEDS ORDERED: LORATADINE 10 MG TAB PO SCH (21:00)
[2024-08-17 21:01] LABS: Basophils % (A) 0 %; Eosinophils # (A) 0.1 k/uL (0-0.7); Eosinophils % (A) 1 %; HGB 12.5 gm/dL (11.4-16.0); Lymphocytes # (A) 0.7 k/uL (1.0-4.8); Lymphocytes % (A) 5 %; MCH 31.1 pg (25.0-35.0); MCHC 32.2 g/dL (31.0-37.0); MCV 96.6 fL (80.0-100.0); Mean Platelet Volume 9.5; Monocytes # (A) 0.5 k/uL (0-1.0); Monocytes % (A) 3 %; Neutrophils # (A) 14.1 k/uL (1.3-7.7); Neutrophils % (A) 91 %; Platelet Count 217 k/uL (150-450); RBC 4.03 m/uL (3.80-5.40); RDW 12.8 % (11.5-15.5); WBC 15.5 k/uL (3.8-10.6)
[2024-08-18 08:56] LABS: Basophils % (A) 0 %; Eosinophils # (A) 0.4 k/uL (0-0.7); Eosinophils % (A) 4 %; HCT 36.4 % (34.0-46.0); HGB 11.8 gm/dL (11.4-16.0); Lymphocytes # (A) 1.6 k/uL (1.0-4.8); Lymphocytes % (A) 17 %; MCH 31.4 pg (25.0-35.0); MCHC 32.6 g/dL (31.0-37.0); MCV 96.3 fL (80.0-100.0); Mean Platelet Volume 9.1; Monocytes # (A) 0.5 k/uL (0-1.0); Monocytes % (A) 5 %; Neutrophils % (A) 73 %; Platelet Count 243 k/uL (150-450); RBC 3.78 m/uL (3.80-5.40); RDW 12.8 % (11.5-15.5); WBC 9.6 k/uL (3.8-10.6)
[2024-08-18 10:56] LABS: ALT 59 U/L (4-34); AST 41 U/L (14-36); African American GFR (CKD) >90 (>60 ml/min/1.73 sqM); Albumin 3.2 g/dL (3.5-5.0); Albumin/Globulin Ratio 1.2; Alkaline Phosphatase 67 U/L (38-126); Anion Gap 4 mmol/L; Blood Urea Nitrogen 9 mg/dL (7-17); Calcium 8.5 mg/dL (8.4-10.2); Carbon Dioxide 26 mmol/L (22-30); Chloride 109 mmol/L (98-107); Globulin 2.6 g/dL; Glucose 127 mg/dL (74-99); Non-African American GFR(CKD) >90 (>60 ml/min/1.73 sqM); Potassium 3.8 mmol/L (3.5-5.1); Sodium 139 mmol/L (137-145); Total Bilirubin 0.9 mg/dL (0.2-1.3); Total Protein 5.8 g/dL (6.3-8.2)
[2024-08-18 11:44] VITALS: BP 133/72; PULSE 89; RESP 15; TEMP 99.8
--- NOTE | 2024-08-18 14:40 | P.DS ---
Providers Date of admission: 08/16/24 21:44 Expected date of discharge: 08/18/24 Attending physician: Diego De Leon DO Primary care physician: Radha Claros Hospital Course: Discharge diagnosis 1. Acute on chronic cholecystitis 2. Mildly elevated LFTs Hospital course This is a 53-year-old female who presented with right upper quadrant and epigastric abdominal pain. Ultrasound reporting gallstones. Patient is status post robotic assisted cholecystectomy. Her pain is controlled. She is tolerating diet. She has been up and ambulating. She is afebrile. She is having flatus. Incision sites are clean dry and intact. Patient with mildly elevated LFTs. Total bilirubin normal. Recommend recheck LFTs in 1 week. She is stable for discharge. Please refer to chart for any further details. Physician Crm Marketing Executive note has been reviewed by physician. Signing provider agrees with the documented findings, assessment, and plan of care. Patient Condition at Discharge: Stable Plan - Discharge Summary Discharge Rx Participant: No New Discharge Prescriptions: New Ibuprofen [Motrin] 600 mg PO Q8HR PRN #30 tab PRN Reason: Pain Acetaminophen Tab [Tylenol Tab] 650 mg PO Q4H PRN #30 tablet PRN Reason: Pain Continue Levocetirizine Dihydrochloride [Xyzal] 5 mg PO HS Cholecalciferol [Vitamin D3 (10 Mcg = 400 Iu)] 10 mcg PO DAILY Multivitamins, Thera [Multivitamin (formulary)] 1 tab PO DAILY Famotidine [Pepcid] 20 mg PO BID #14 tablet Discontinued Ketorolac [Toradol] 10 mg PO Q8HR #15 tab HYDROcodone/APAP 5-325MG [[place] 5] 1 tab PO Q6HR PRN PRN Reason: Pain Discharge Medication List Cholecalciferol [Vitamin D3 (10 Mcg = 400 Iu)] 10 mcg PO DAILY 02/18/23 [History] Levocetirizine Dihydrochloride [Xyzal] 5 mg PO HS 02/18/23 [History] Multivitamins, Thera [Multivitamin (formulary)] 1 tab PO DAILY 02/18/23 [History ] Famotidine [Pepcid] 20 mg PO BID #14 tablet 08/15/24 [Rx] Acetaminophen Tab [Tylenol Tab] 650 mg PO Q4H PRN #30 tablet 08/18/24 [Rx] Ibuprofen [Motrin] 600 mg PO Q8HR PRN #30 tab 08/18/24 [Rx] Follow up Appointment(s)/Referral(s): Radha Claros MD [Primary Care Provider] - 1-2 days Timur Lund DO [Doctor of Osteopathic Medicine] - 1 Week Activity/Diet/Wound Care/Special Instructions: No lifting over 10 pounds You may shower. No soaking or tub baths for 2 weeks Very light activity until you are reevaluated at your follow up appointment with your surgeon Continue a low-fat diet Repeat LFTs in 1 week in office Discharge Disposition: HOME SELF-CARE
[2024-08-19 07:02] LABS: Glucose,Whole Blood 145 mg/dL (70-110)
[2024-08-19 07:17] LABS: Glucose,Whole Blood 115 mg/dL (70-110)
== END 2024-08-18 16:45 | disposition home or self-care (01) ==
LOC: EC 18:06 → 6NMEDSUR 21:44 → 5NMEDONC 08-17 01:37
PROVIDERS: ADMIT Surgery; ATTEND Surgery
CPT/HCPCS: 36415; 47562; 80053; 81001; 82150; 83605; 83690; 85025; 87070; 87075; 87205; 88304; 96361; 96374; 96375; 96376; 99285; S2900